=== PATIENT | female | born 1980 | race Native Hawaiian/Other Pacific Islander ===

== ENCOUNTER 2020-04-30 06:17 | Outpatient (REF) | payer MEDICAID, SELFPAY | END 2020-04-30 06:18 | disposition home or self-care (01) | LOC: HO.LAB 06:17 | PROVIDERS: PCP Nurse Practitioner Family; Visit Provider Internal Medicine | DX: Z20.828 Contact with and (suspected) exposure to other viral communicable diseases (principal) | CPT/HCPCS: 87635 ==

== ENCOUNTER → 2020-10-23 10:09 | Outpatient (BNVA) | payer MEDICAID, SELFPAY | PROVIDERS: Visit Provider Nurse Practitioner ==

== ENCOUNTER → 2020-12-30 13:33 | Outpatient (BNVA) | payer MEDICAID, SELFPAY | PROVIDERS: Referring Provider Nurse Practitioner Family; Visit Provider Physician Assistant | DX: E66.01 Morbid (severe) obesity due to excess calories (principal); K21.9 Gastro-esophageal reflux disease without esophagitis; K58.9 Irritable bowel syndrome, unspecified; K59.04 Chronic idiopathic constipation | CPT/HCPCS: 99202 ==

== ENCOUNTER → 2021-01-07 08:13 | Outpatient (BNVA) | payer MEDICAID, SELFPAY | PROVIDERS: PCP Nurse Practitioner Family; Visit Provider Dietitian, Registered | DX: E66.09 Other obesity due to excess calories (principal); Z68.41 Body mass index [BMI] 40.0-44.9, adult; Z90.49 Acquired absence of other specified parts of digestive tract | CPT/HCPCS: 97802 ==

== ENCOUNTER 2021-01-12 10:10 | Outpatient (REF) | payer MEDICAID, SELFPAY ==
--- NOTE | ~2021-01-12 | XR_ITS ---
EXAMINATION: XR CHEST CLINICAL INFORMATION: Severe obesity COMPARISON: August 16, 2016 TECHNIQUE: 2 views of the chest were obtained. FINDINGS: No significant abnormality is noted involving the heart, lungs, mediastinum, bony thorax or soft tissues. XR/XR chest 2V IMPRESSION: No acute disease.
--- NOTE | 2021-01-12 10:40 | ECG_ITS ---
Test Reason : MORBID OBESITY Blood Pressure : / mmHG Vent. Rate : 094 BPM Atrial Rate : 094 BPM P-R Int : 128 ms QRS Dur : 080 ms QT Int : 352 ms P-R-T Axes : 037 -27 017 degrees QTc Int : 440 ms Normal sinus rhythm Normal ECG No previous ECGs available Referred By: Vibha Egan Electronically Signed By:NANCY YING MD
[2021-01-12 11:23] LABS: MANUAL DIFF FLAG NO
[2021-01-12 11:32] LABS: Basophils Percent Auto 0.3 % (0-2); Eosinophils Absolute Auto 0.1 X10*3/uL (0.0-0.4); Eosinophils Percent Auto 1.2 % (0-4); Hematocrit 37.7 % (37-47); Hemoglobin 12.1 g/dl (12.0-16.0); Imm Gran Abs Auto 0.02 X10*3/uL (0.00-0.03); Imm Gran Pct Auto 0.3 % (0.0-0.4); Lymphocytes Absolute Auto 1.7 X10*3/uL (1.2-4.9); Lymphocytes Percent Auto 24.8 % (20-40); Mean Corpuscular HGB Conc 32.1 g/dl (31.0-35.0); Mean Corpuscular Hemoglobin 25.5 pg (27.0-33.0); Mean Corpuscular Volume 79.5 fL (80-98); Mean Platelet Volume 11.2 fL (9.4-12.3); Monocytes Absolute Auto 0.5 X10*3/uL (0.1-1.2); Monocytes Percent Auto 7.2 % (2-11); Neutrophils Absolute Auto 4.4 X10*3/uL (2.0-8.3); Neutrophils Percent Auto 66.2 % (45-73); Platelet Count 244 X10*3/uL (160-400); Red Blood Count 4.74 X10*6/uL (4.20-5.50); Red Cell Distribution Width 13.2 % (11.0-16.0); White Blood Count 6.7 X10*3/uL (4.8-10.8)
[2021-01-12 12:10] LABS: Alanine Aminotransferase 14 U/L (0-31); Albumin Level 4.5 g/dL (3.5-5.0); Alkaline Phosphatase 63 U/L (39-117); Anion Gap 12 (12-20); Aspartate Amino Transferase 17 U/L (5-31); Bilirubin Total 0.4 mg/dL (0.0-1.0); Blood Urea Nitrogen 16 mg/dL (9-16); C Reactive Protein 0.84 mg/dL (< or = 0.50); Calcium 9.4 mg/dL (8.4-10.2); Carbon Dioxide 25 mmol/L (22-29); Chloride 105 mmol/L (96-108); Cholesterol 168 mg/dL; Estimated Average Glucose 108 mg/dL; Estimated Glomerular Filt Rate > 60; Ferritin 29 ng/mL (10-122); Glucose Random 109 mg/dL (60-115); HDL Cholesterol 85 mg/dL; Hemoglobin A1c % 5.4 %; Iron 67 mcg/dL (30-160); LDL Cholesterol Calculated 70 mg/dl; Percent Iron Saturation 19 % (15-50); Potassium 4.5 mmol/L (3.3-5.1); Sodium 137 mmol/L (135-145); TSH reflex Free T4 0.73 uIU/mL (0.32-4.0); Total Iron Binding Capacity 350 mcg/dL (228-428); Total Protein 7.3 g/dL (6.5-8.0); Triglycerides 66 mg/dL; Unsaturated Iron Binding 283 ug/dL; Vitamin D 25-OH Total 20.5 ng/mL (>30)
[2021-01-12 12:20] LABS: Folate 5.9 ng/mL (> or = 4.0); Vitamin B12 392 pg/mL (200-900)
[2021-01-13 13:16] LABS: Calcium (PTHI) 9.6 mg/dL (8.6-10.2); PTHI 40 pg/mL (14-64)
[2021-01-13 21:26] LABS: Insulin Level Total 12.6 uIU/mL
[2021-01-14 16:56] LABS: Zinc 62 mcg/dL (60-130)
[2021-01-15 21:47] LABS: Vitamin A 56 mcg/dL (38-98)
[2021-01-16 12:46] LABS: Vitamin B1 10 nmol/L (8-30)
== END 2021-01-12 10:11 | disposition home or self-care (01) ==
LOC: HO.XRAY 10:10
PROVIDERS: PCP Nurse Practitioner Family; Visit Provider Physician Assistant
DX: E66.01 Morbid (severe) obesity due to excess calories (principal); K21.9 Gastro-esophageal reflux disease without esophagitis
CPT/HCPCS: 36415; 71046; 80053; 80061; 82306; 82607; 82728; 82746; 83036; 83525; 83540; 83970; 84425; 84443; 84590; 84630; 85025; 86140; 93005

== ENCOUNTER → 2021-01-14 14:46 | Outpatient (BNVA) | payer MEDICAID, SELFPAY | PROVIDERS: PCP Nurse Practitioner Family; Visit Provider Physician Assistant | DX: E66.01 Morbid (severe) obesity due to excess calories (principal); F41.9 Anxiety disorder, unspecified; E55.9 Vitamin D deficiency, unspecified; Z68.41 Body mass index [BMI] 40.0-44.9, adult | CPT/HCPCS: 99212 ==

== ENCOUNTER → 2021-01-27 13:57 | Outpatient (BNVA) | payer MEDICAID, SELFPAY | PROVIDERS: PCP Nurse Practitioner Family; Referring Provider Nurse Practitioner Family; Visit Provider Surgery | DX: E66.01 Morbid (severe) obesity due to excess calories (principal); Z68.41 Body mass index [BMI] 40.0-44.9, adult | CPT/HCPCS: 99212 ==

== ENCOUNTER → 2021-02-02 08:10 | Outpatient (BNVA) | payer MEDICAID, SELFPAY | PROVIDERS: PCP Nurse Practitioner Family; Visit Provider Dietitian, Registered | DX: E66.01 Morbid (severe) obesity due to excess calories (principal) | CPT/HCPCS: 97803 ==

== ENCOUNTER 2021-02-05 11:06 | Outpatient (REF) | payer MEDICAID, SELFPAY ==
[2021-02-06 12:22] LABS: H Pylori Breath Test NOT DETECTED (NOT DETECTED)
== END 2021-02-05 11:07 | disposition home or self-care (01) ==
LOC: HO.LNP 11:06
PROVIDERS: Physician Assistant; PCP Nurse Practitioner Family; Referring Provider Nurse Practitioner Family; Visit Provider Physician Assistant
DX: E66.01 Morbid (severe) obesity due to excess calories (principal); K21.9 Gastro-esophageal reflux disease without esophagitis
CPT/HCPCS: 83013; 99211

== ENCOUNTER → 2021-02-17 13:00 | Outpatient (BNVA) | payer MEDICAID, SELFPAY | PROVIDERS: PCP Nurse Practitioner Family; Visit Provider Surgery | DX: E66.9 Obesity, unspecified (principal); Z68.39 Body mass index [BMI] 39.0-39.9, adult | CPT/HCPCS: 99212 ==

== ENCOUNTER → 2021-02-23 13:42 | Outpatient (BNVA) | payer MEDICAID, SELFPAY | PROVIDERS: Visit Provider Nurse Practitioner ==

== ENCOUNTER → 2021-02-26 08:16 | Outpatient (BNVA) | payer MEDICAID, SELFPAY | PROVIDERS: PCP Nurse Practitioner Family; Referring Provider Nurse Practitioner Family; Visit Provider Dietitian, Registered | DX: E66.9 Obesity, unspecified (principal); Z68.39 Body mass index [BMI] 39.0-39.9, adult | CPT/HCPCS: 97803 ==

== ENCOUNTER 2021-03-03 12:19 | Outpatient (REF) | payer MEDICAID, SELFPAY ==
--- NOTE | ~2021-03-03 | XR_ITS ---
EXAMINATION: XR ANKLE, RIGHT XR FOOT, RIGHT CLINICAL INFORMATION: Pain. COMPARISON: None TECHNIQUE: AP, lateral, and mortise views of the right ankle. AP, lateral, and oblique views of the right foot. FINDINGS: Bony alignment and mineralization are normal. No fracture. Alignment is anatomic. The ankle mortise is intact. Joint spaces are maintained. No joint effusion. Boehler's angle is normal. There are moderately large posterior and plantar calcaneal spurs. No soft tissue gas or foreign body is seen. XR/XR ankle RT 2V IMPRESSION: 1. No fracture, dislocation or right ankle joint effusion is seen. 2. There are moderately large posterior and plantar calcaneal spurs.
--- NOTE | ~2021-03-03 | XR_ITS ---
EXAMINATION: XR KNEE, RIGHT CLINICAL INFORMATION: Pain. COMPARISON: None TECHNIQUE: AP, lateral, tunnel, and sunrise views of the right knee. FINDINGS: Bones and soft tissues are normal. No fracture or joint effusion. Alignment is anatomic. Joint spaces are well maintained. There is a small enthesophyte arising from the upper pole of the patella at the quadriceps tendon insertion. No abnormal soft tissue calcification. XR/XR knee LT 4V IMPRESSION: Normal right knee. EXAMINATION: XR KNEE, LEFT CLINICAL INFORMATION: Pain. COMPARISON: None TECHNIQUE: AP, lateral, tunnel, and sunrise views of the left knee. FINDINGS: Bones and soft tissues are normal. No fracture or dislocation. There is a very small joint effusion. Alignment is anatomic. Joint spaces are well maintained. There is minimal peripheral osteophyte formation of the patellofemoral compartment. No abnormal soft tissue calcification. IMPRESSION: 1. No fracture or dislocation is seen. 2. There is a very small left knee joint effusion. 3. There is minimal osteoarthritic change of the left patellofemoral compartment.
--- NOTE | ~2021-03-03 | XR_ITS ---
EXAMINATION: XR KNEE, RIGHT CLINICAL INFORMATION: Pain. COMPARISON: None TECHNIQUE: AP, lateral, tunnel, and sunrise views of the right knee. FINDINGS: Bones and soft tissues are normal. No fracture or joint effusion. Alignment is anatomic. Joint spaces are well maintained. There is a small enthesophyte arising from the upper pole of the patella at the quadriceps tendon insertion. No abnormal soft tissue calcification. XR/XR knee RT 4V IMPRESSION: Normal right knee. EXAMINATION: XR KNEE, LEFT CLINICAL INFORMATION: Pain. COMPARISON: None TECHNIQUE: AP, lateral, tunnel, and sunrise views of the left knee. FINDINGS: Bones and soft tissues are normal. No fracture or dislocation. There is a very small joint effusion. Alignment is anatomic. Joint spaces are well maintained. There is minimal peripheral osteophyte formation of the patellofemoral compartment. No abnormal soft tissue calcification. IMPRESSION: 1. No fracture or dislocation is seen. 2. There is a very small left knee joint effusion. 3. There is minimal osteoarthritic change of the left patellofemoral compartment.
--- NOTE | ~2021-03-03 | XR_ITS ---
EXAMINATION: XR ANKLE, RIGHT XR FOOT, RIGHT CLINICAL INFORMATION: Pain. COMPARISON: None TECHNIQUE: AP, lateral, and mortise views of the right ankle. AP, lateral, and oblique views of the right foot. FINDINGS: Bony alignment and mineralization are normal. No fracture. Alignment is anatomic. The ankle mortise is intact. Joint spaces are maintained. No joint effusion. Boehler's angle is normal. There are moderately large posterior and plantar calcaneal spurs. No soft tissue gas or foreign body is seen. XR/XR foot RT min 3V IMPRESSION: 1. No fracture, dislocation or right ankle joint effusion is seen. 2. There are moderately large posterior and plantar calcaneal spurs.
== END 2021-03-03 12:20 | disposition home or self-care (01) ==
LOC: HO.XRAY 12:19
PROVIDERS: PCP Nurse Practitioner Family; Visit Provider Nurse Practitioner Family
DX: M25.561 Pain in right knee (principal); M25.562 Pain in left knee; M79.671 Pain in right foot
CPT/HCPCS: 73564; 73600; 73630

== ENCOUNTER → 2021-03-26 13:17 | Outpatient (BNVA) | payer MEDICAID, SELFPAY | PROVIDERS: PCP Nurse Practitioner Family; Referring Provider Nurse Practitioner Family; Visit Provider Surgery | DX: E66.9 Obesity, unspecified (principal); Z68.38 Body mass index [BMI] 38.0-38.9, adult | CPT/HCPCS: 99212 ==

== ENCOUNTER 2021-04-03 07:21 | Outpatient (REF) | payer MEDICAID, SELFPAY ==
--- NOTE | ~2021-04-03 | XR_ITS ---
EXAMINATION: XR KNEE, BILATERAL CLINICAL INFORMATION: Right knee pain. COMPARISON: Right and left knee radiographs dated 03/03/2021 TECHNIQUE: AP bilateral standing view of the knees was obtained. FINDINGS: Tiny medial and lateral compartment marginal osteophytes within the right and left knee. No significant joint space narrowing. No osseous erosion. No fracture or dislocation. No abnormal soft tissue calcification. XR/XR knee standing BI IMPRESSION: Mild medial and lateral compartment osteoarthritis within the right and left knee, unchanged.
== END 2021-04-03 07:22 | disposition home or self-care (01) ==
LOC: HO.HOSX 07:21
PROVIDERS: Visit Provider Physician Assistant
DX: M22.2X1 Patellofemoral disorders, right knee (principal); M22.2X2 Patellofemoral disorders, left knee
CPT/HCPCS: 73565; 99202

== ENCOUNTER → 2021-04-20 14:48 | Outpatient (BNVA) | payer MEDICAID, SELFPAY | PROVIDERS: PCP Nurse Practitioner Family; Referring Provider Nurse Practitioner Family; Visit Provider Surgery | DX: E66.9 Obesity, unspecified (principal); Z68.38 Body mass index [BMI] 38.0-38.9, adult | CPT/HCPCS: 99212 ==

== ENCOUNTER 2021-05-05 11:25 | Outpatient (REF) | payer MEDICAID, SELFPAY ==
[2021-05-05 13:23] LABS: Vitamin D 25-OH Total 47.9 ng/mL (>30)
== END 2021-05-05 11:26 | disposition home or self-care (01) ==
LOC: HO.LAB 11:25
PROVIDERS: Visit Provider Surgery
DX: Z01.818 Encounter for other preprocedural examination (principal); E55.9 Vitamin D deficiency, unspecified
CPT/HCPCS: 36415; 82306

== ENCOUNTER → 2021-05-21 09:35 | Outpatient (BNVA) | payer MEDICAID, SELFPAY | PROVIDERS: Visit Provider Physician Assistant Surgical | DX: E66.9 Obesity, unspecified (principal); Z68.37 Body mass index [BMI] 37.0-37.9, adult | CPT/HCPCS: 99212 ==

== ENCOUNTER 2021-06-03 15:00 | Outpatient (RCR) | payer MEDICAID, SELFPAY ==
--- NOTE | 2021-05-22 15:50 | MHC.PT.EP ---
[facility] [place] Office [place] Office [place] Office [address]lon [address] [phone] F: [phone] F: [phone] F: [phone] F: [phone] Physical Therapy Plan of Care Date of Evaluation: Date of Surgery: n/a Diagnosis: patellofemoral disorders, R knee disorder Assessment: Patient is a 41 year old female presenting to PT with complaints of pain in his R knee. Pt reports onset of pain began 3-4 months ago due to insidious onset. She presents today with impairments in pain, hip strength, balance, and hs/quad muscle length. 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 Clinical presentation today is most consistent with signs and sx associated with possible patellofemoral pain syndrome and pt will benefit from skilled PT to address the following problems and impairments noted upon evaluation: pain, hip strength, balance, and hs/quad muscle length. These problems limit the patient with the following functional activities: ambulation, stair negotiation, and occasionally sleep. The prescribed treatment plan of care is medically necessary. Co-morbidities of none were identified and taken into considerations of plan of care. Pt was educated on HEP, role of PT, prognosis, POC, anatomy of knee. Frequency and Duration: The patient will be seen 2x week x 4 weeks Short Term Goals: Pt will demonstrate quad muscle length WNL in 2 weeks as evidence by negative prone quad test. Pt will demonstrate hs muscle length WNL in 2 weeks. Pt will demonstrate improved hip strength by 1/3 MMT in 2 weeks for improved lumbopelvic stability. Pt will demonstrate ability to SLS x 30 sec with min sway in 2 weeks for improved proprioception. Group Home Goals: Pt will demonstrate ability to negotiate stairs with min to no pain in 4 weeks to allow return to PLOF. Pt will demonstrate ability to ambulate x 20 min with min to no pain in 4 weeks to improve access to the community. Pt will demonstrate independence with maintenance HEP in 4 weeks for bed bug exterminator management of sx. Treatment Plan: Modalities to reduce pain, spasms and effusion. Manual therapy to restore motion and function. Therapeutic exercise to improve strength and flexibility. Neuromuscular re-education for posture and balance. Therapeutic activities to return to functional activities of daily living. Electronically signed by: Tamiko Clay, PT, DPT, ATC Please sign and return to therapist. Thank you for your referral.
--- NOTE | 2021-06-16 15:40 | MHC.PT.DC ---
[facility] [place] Office [place] Office [place] Office [address] [phone] F: [phone] F: [phone] F: [phone] F: [phone] Physical Therapy Discharge Report Diagnosis: patellofemoral disorders, R knee disorder Date of Surgery: n/a Date of Evaluation: 05/22/21 Date of Discharge: 06/16/21 Treatments to Date: 3 Cancellations to Date: 1 No Shows to Date: 2 Discharge Status: Visit Non-compliance Discharge Summary: Pt has failed to comply with [facility] attendance policy and no showed her last 2 scheduled appts. Pt current status unknown at this time. Electronically signed by: Tamiko Clay, PT, DPT, ATC Please sign and return to therapist. Thank you for your referral.
== END 2021-06-16 15:41 | disposition home or self-care (01) ==
LOC: HO.PT 15:00
PROVIDERS: PCP Nurse Practitioner Family; Visit Provider Physician Assistant
DX: M22.2X1 Patellofemoral disorders, right knee (principal); M22.2X2 Patellofemoral disorders, left knee
CPT/HCPCS: 97110; 97161

== ENCOUNTER → 2021-06-25 08:53 | Outpatient (BNVA) | payer MEDICAID, SELFPAY | PROVIDERS: PCP Nurse Practitioner; Referring Provider Nurse Practitioner; Visit Provider Physician Assistant Surgical | DX: E66.9 Obesity, unspecified (principal); Z68.36 Body mass index [BMI] 36.0-36.9, adult | CPT/HCPCS: 99212 ==

== ENCOUNTER 2021-07-02 09:22 | Outpatient (REF) | payer MEDICAID, SELFPAY ==
--- NOTE | ~2021-07-02 | US_ITS ---
EXAMINATION: US COMPLETE ABDOMEN WITH LIVER ELASTOGRAPHY CLINICAL INFORMATION: Obesity COMPARISON: Previous exam July 2016 TECHNIQUE: Real-time imaging of the abdominal viscera. Noninvasive ultrasound liver fibrosis assessment is performed using Claudio ElastPQ point quantification shear wave elastography (pSWE) with a C5-2 MHz transducer. Multiple elastography samples are obtained. FINDINGS: PANCREAS: Not well visualized due to bowel gas ABDOMINAL AORTA: The proximal, middle, and distal aortic segments are normal in caliber. INFERIOR VENA CAVA: Visualized portions are normal. LIVER: Liver echotexture is increased. The liver is normal in size and contour.. No focal lesion or intrahepatic biliary duct dilatation. The right lobe measures 13 cm in length. The left lobe measures 10 cm in length. Portal flow is normal/hepatopedal Shear wave liver elastography median stiffness is 1.5 m/s (reference: normal median stiffness is 1.3 m/s or less). IQR/median stiffness to assess sampling precision is 0.19 (reference: good quality data set is IQR/median stiffness of 0.15 or less). GALLBLADDER: Surgically removed COMMON BILE DUCT: Normal in caliber measuring 0.5 cm in diameter. RIGHT KIDNEY: Normal. No hydronephrosis. No renal calculi or focal parenchymal lesions. The kidney measures 11 cm in maximum dimension. LEFT KIDNEY: Normal. No hydronephrosis. No renal calculi or focal parenchymal lesions. The kidney measures 11 cm in maximum dimension. SPLEEN: Normal. The spleen measures 11.7 cm in maximum dimension. FREE FLUID: None. US/US abdomen comp w elastography IMPRESSION: 1. Impression: Echogenic liver. Limited visualization of the pancreas. Cholecystectomy. 2. Liver elastography: Slightly limited due to sampling error. In the absence of other known clinical signs, rules out compensated advanced chronic liver disease. REFERENCE: Society of Radiologists in Ultrasound Liver Stiffness Thresholds (2020): LIVER STIFFNESS THRESHOLDS: *Liver Stiffness equal or less than 1.3 m/s: High probability of being normal. *Liver Stiffness less than 1.7 m/s: In the absence of other known clinical signs, rules out compensated advanced chronic liver disease. *Liver Stiffness 1.7-2.1 m/s: Suggestive of compensated advanced chronic liver disease but need further test for confirmation. *Liver Stiffness over 2.1 m/s: Rules in compensated advanced chronic liver disease. *Liver Stiffness over 2.4 m/s: Suggestive of clinically significant portal hypertension. QUALITY OF DATA SET: *IQR/Median value equal or less than 0.15 implies a quality data set. *IQR/Median value over 0.15 implies a poor quality data set. SIGNIFICANT CHANGE FROM PRIOR EXAM: Significant change if liver stiffness measurement is 10% or greater from prior exam. OTHER CONSIDERATIONS: The stage of liver fibrosis may be overestimated in the setting of acute hepatitis, liver inflammation, elevated liver function tests, hepatic vascular congestion, obstructive cholestasis, non-fasting state, and infiltrative diseases such as amyloidosis and lymphoma. In some patients with NAFLD, the liver stiffness thresholds for compensated advanced chronic liver disease may be lower. In causes other than viral hepatitis and NAFLD, liver stiffness thresholds are not well established.
--- NOTE | ~2021-07-02 | FL_ITS ---
EXAMINATION: XR FLUOROSCOPY UPPER GI WITH AIR CLINICAL INFORMATION: Obesity. COMPARISON: None. TECHNIQUE: Routine upper GI exam was performed in upright and lying position. FINDINGS: Following intravenous administration of thick barium and effervescent granules, there is normal progression of bolus from the oral cavity through the pharynx and esophagus and into the stomach without any evidence of obstruction, narrowing or stricture. On placing patient supine and prone lying, the course, caliber and peristalsis of the stomach and the duodenum are normal. The mucosal pattern of the stomach and the duodenum is normal. There is a large gastroesophageal reflux in right decubitus view. No evidence of hiatal hernia. There is evidence of previous cholecystectomy. FLUOROSCOPY TIME: 1.4 minutes. DOSE AREA PRODUCT: 29.094 uGy-m2 (microgray-meter squared). FL/FL upper GI w air IMPRESSION: Large gastroesophageal reflux without hiatal hernia.
== END 2021-07-02 09:23 | disposition home or self-care (01) ==
LOC: HO.US 09:22
PROVIDERS: Visit Provider Physician Assistant Surgical
DX: E66.9 Obesity, unspecified (principal)
CPT/HCPCS: 74246; 76705; 76981

== ENCOUNTER 2021-07-09 08:45 | Outpatient (REF) | payer MEDICAID, SELFPAY ==
[2021-07-15 14:46] LABS: CT PCR NOT DETECTED (Not Detect.); NG PCR NOT DETECTED (Not Detect.)
[2021-07-21 18:46] LABS: HPV mRNA E6/E7 rflx Not Detected (Not Detected)
== END 2021-07-09 08:46 | disposition home or self-care (01) ==
LOC: HO.LAB 08:45
PROVIDERS: Visit Provider Advanced Practice Midwife
DX: Z01.419 Encounter for gynecological examination (general) (routine) without abnormal findings (principal); E66.9 Obesity, unspecified; E55.9 Vitamin D deficiency, unspecified; F33.9 Major depressive disorder, recurrent, unspecified; F41.9 Anxiety disorder, unspecified; F43.10 Post-traumatic stress disorder, unspecified; Z11.3 Encounter for screening for infections with a predominantly sexual mode of transmission; Z11.8 Encounter for screening for other infectious and parasitic diseases; Z11.51 Encounter for screening for human papillomavirus (HPV); Z90.49 Acquired absence of other specified parts of digestive tract; Z79.899 Other long term (current) drug therapy
CPT/HCPCS: 87491; 87591; 87624; 88142

== ENCOUNTER → 2021-08-12 12:15 | Outpatient (BNVA) | payer MEDICAID, SELFPAY | PROVIDERS: Visit Provider Surgery | DX: E66.9 Obesity, unspecified (principal); Z68.37 Body mass index [BMI] 37.0-37.9, adult | CPT/HCPCS: 99212 ==

== ENCOUNTER → 2021-08-28 12:59 | Outpatient (BNVA) | payer MEDICAID, SELFPAY | PROVIDERS: Visit Provider Nurse Practitioner | DX: K21.9 Gastro-esophageal reflux disease without esophagitis (principal); K59.04 Chronic idiopathic constipation | CPT/HCPCS: 99212 ==

== ENCOUNTER → 2021-09-04 08:57 | Outpatient (BNVA) | payer MEDICAID, SELFPAY | PROVIDERS: Visit Provider Surgery ==

== ENCOUNTER → 2021-09-09 10:30 | Outpatient (BNVA) | payer MEDICAID, SELFPAY | PROVIDERS: Visit Provider Surgery | DX: E66.9 Obesity, unspecified (principal); K21.9 Gastro-esophageal reflux disease without esophagitis; Z68.37 Body mass index [BMI] 37.0-37.9, adult | CPT/HCPCS: 99212 ==

== ENCOUNTER 2021-09-23 08:24 | Outpatient (REF) | payer MEDICAID, SELFPAY | END 2021-09-23 08:25 | disposition home or self-care (01) | LOC: HO.LAB 08:24 | PROVIDERS: Visit Provider Surgery | DX: Z13.89 Encounter for screening for other disorder (principal) ==

== ENCOUNTER 2021-09-30 08:00 | Inpatient (IN) | payer MEDICAID, SELFPAY ==
[2021-09-23 08:44] LABS: MANUAL DIFF FLAG NO
[2021-09-23 09:02] LABS: Basophils Percent Auto 0.3 % (0-2); Eosinophils Absolute Auto 0.1 X10*3/uL (0.0-0.4); Hemoglobin 12.5 g/dl (12.0-16.0); Imm Gran Abs Auto 0.02 X10*3/uL (0.00-0.03); Imm Gran Pct Auto 0.3 % (0.0-0.4); Lymphocytes Absolute Auto 1.8 X10*3/uL (1.2-4.9); Lymphocytes Percent Auto 26.2 % (20-40); Mean Corpuscular HGB Conc 32.9 g/dl (31.0-35.0); Mean Corpuscular Hemoglobin 26.3 pg (27.0-33.0); Mean Platelet Volume 10.3 fL (9.4-12.3); Monocytes Absolute Auto 0.5 X10*3/uL (0.1-1.2); Monocytes Percent Auto 7.2 % (2-11); Neutrophils Absolute Auto 4.6 x10*3/uL (2.0-8.3); Platelet Count 268 X10*3/uL (160-400); Red Blood Count 4.75 X10*6/uL (4.20-5.50); Red Cell Distribution Width 12.8 % (11.0-16.0)
[2021-09-23 09:09] LABS: INTERNATIONAL NORM RATIO 1.1 (0.9-1.1); Prothrombin Time 12.3 SEC (9.9-13.0)
[2021-09-23 09:11] LABS: Estimated Average Glucose 105 mg/dL; Hemoglobin A1c % 5.3 %
[2021-09-23 09:12] LABS: Partial Thromboplastin Time 35.8 SEC (24.1-38.0)
[2021-09-23 09:31] LABS: Alanine Aminotransferase 15 U/L (0-31); Albumin Level 4.3 g/dL (3.5-5.0); Alkaline Phosphatase 63 U/L (39-117); Anion Gap 14 (12-20); Aspartate Amino Transferase 14 U/L (5-31); Bilirubin Total 0.6 mg/dL (0.0-1.0); Blood Urea Nitrogen 14 mg/dL (9-16); C Reactive Protein 0.63 mg/dL (< or = 0.50); Calcium 9.9 mg/dL (8.4-10.2); Carbon Dioxide 26 mmol/L (22-29); Chloride 104 mmol/L (96-108); Cholesterol 176 mg/dL; Estimated Glomerular Filt Rate > 60; Glucose Random 96 mg/dL (60-115); HDL Cholesterol 74 mg/dL; LDL Cholesterol Calculated 85 mg/dl; Potassium 4.2 mmol/L (3.3-5.1); Sodium 140 mmol/L (135-145); Total Protein 7.1 g/dL (6.5-8.0); Triglycerides 85 mg/dL
[2021-09-23 09:53] LABS: Insulin 11 uU/mL (2-29); TSH reflex Free T4 1.91 uIU/mL (0.32-4.0)
[2021-09-24 09:55] VITALS: BMI 36.9
--- NOTE | 2021-09-26 00:58 | MHC.SHP ---
Pre-Procedural Eval Section A Date of Service: 09/26/21 The patient is an INPATIENT: Yes The History & Physical has been completed within 30 days and I have reviewed it.: Yes Section B Chief Complaint: obesity Relevant Family History (Specify if Yes): No Relevant Social History: None Present Medications: None Medical History: No relevant PMH History of Previous Operations: No relevant previous surgery Allergies: Allergies Allergy/AdvReac Type Severity Reaction Status Date / Time No Known Allergies Allergy Verified 09/09/21 10:34 Review of Systems Sugical H&P ROS: Negative: Constitution, Cardiovascular, Respiratory, Neurological, Psychiatric, Hem-Onc, Allergic/Immunologic, Gastrointestinal, Genitourinary, Musculoskeletal, Integumentary, Endocrine and Eyes/Ears/Nose/Throat Exam Surgical H&P Exam: Normal: HEENT, Normal: Heart, Normal: Lungs, Normal: Extremities, Normal: Abdomen, Normal: Skin and Normal: Neurological Plan Diagnosis/Plan: Unchanged I have reviewed the history and physical and performed a pertinent physical examination on my patient. No changes have occurred unless specified.
--- NOTE | 2021-09-28 12:01 | P.CONAN_ITS ---
Documented by User: Tammie Cohen NP 09/28/21 12:02 HPI - Anesthesia Eval Consult details Narrative: 41yo F for Gastrectomy Sleeve,EGD,poss diaphragmatic hernia,poss ventral hernia,poss open, PMFSH Active Problems Active Problems: All Active Problems (Updated 09/24/21 @ 09:43 by Imelda Humphrey RN) Upper abdominal pain (Acute) Morbid obesity (Acute) Anxiety (Acute) BMI 40.0-44.9, adult (Acute) Obesity (Acute) BMI 39.0-39.9,adult (Acute) BMI 38.0-38.9,adult (Acute) Patellofemoral arthralgia of both knees (Acute) Obesity (BMI 30-39.9) (Acute) Well woman exam with routine gynecological exam (Acute) Cervical cancer screening (Acute) Potential exposure to STD (Acute) PTSD (post-traumatic stress disorder) (Acute) BMI 37.0-37.9, adult (Acute) Nausea (Acute) Preprocedural examination (Acute) Chronic idiopathic constipation (Acute) GERD (gastroesophageal reflux disease) (Acute) Vitamin D deficiency (Acute) Past Medical History Medical History (Updated 09/24/21 @ 09:43 by Imelda Humphrey RN) Anxiety with depression Bipolar 1 disorder Chronic idiopathic constipation COVID-19 vaccine series completed GERD (gastroesophageal reflux disease) IBS (irritable bowel syndrome) Vitamin D deficiency Family History Family History Mother No problems noted. Father No problems noted. Brother No problems noted. Sister No problems noted. Daughter No problems noted. Surgical History Surgical History (Updated 09/24/21 @ 09:43 by Imelda Humphrey RN) History of dilation and curettage History of esophagogastroduodenoscopy (EGD) Hx of section S/P laparoscopic cholecystectomy Social History Social History Household Members: Children Are you a primary laboratory animal care veterinarian to a significant other at home: No Do you presently have visiting nurse or other home services: No Alcohol intake: current Alcohol intake frequency: does not drink Patient Tobacco Use Status: Never used Tobacco Use of substances other than those prescribed or required for medical reasons: No Have you been hit, kicked, punched, or otherwise hurt by someone within the past year? 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 Allergies Allergy/AdvReac Type Severity Reaction Status Date / Time No Known Allergies Allergy Verified 09/09/21 10:34 Home Medications Medication Instructions Recorded Confirmed Last Taken Type bupropion HCl 300 mg 24 hr tablet, 300 mg PO QAM 10/23/20 09/24/21 09/30/21 07:15 History extended release (Wellbutrin XL) hydroxyzine HCl 25 mg tablet 25 mg PO BEDTIME 10/23/20 09/24/21 Unknown History lamotrigine 100 mg tablet 100 mg PO DAILY 10/23/20 09/24/21 09/30/21 07:15 History (Lamictal) fluoxetine 20 mg capsule 20 mg PO QAM 08/12/21 09/24/21 09/30/21 07:15 History Exam Exam Date and Time: September 28, 2021 1201 Height,Weight and Vital Signs: Height 5 ft 2 in Weight 91.626 kg Pertinent Lab Results Pertinent Lab Results: Laboratory Tests 09/23/21 09/23/21 09/23/21 08:40 08:40 08:40 WBC 7.0 RBC 4.75 Hgb 12.5 Hct 38.0 MCV 80.0 MCH 26.3 L MCHC 32.9 RDW 12.8 Plt Count 268 MPV 10.3 Immature Gran % (Auto) 0.3 Neut % (Auto) 65.0 Lymph % (Auto) 26.2 [place] % (Auto) 7.2 Eos % (Auto) 1.0 Baso % (Auto) 0.3 Lymph # (Auto) 1.8 [place] # (Auto) 0.5 Eos # (Auto) 0.1 Baso # (Auto) 0.0 Abs Immat Gran (auto) 0.02 Absolute Neuts (auto) 4.6 Absolute Nucleated RBC 0.000 Nucleated RBC % (auto) 0.0 PT 12.3 INR 1.1 APTT 35.8 Sodium 140 Potassium 4.2 Chloride 104 Carbon Dioxide 26 Anion Gap 14 BUN 14 Creatinine 0.78 Estim Creat Clear Calc TNP Estimated GFR > 60 Random Glucose 96 Estimat Average Glucose Hemoglobin A1c % Insulin Level 11 Calcium 9.9 Total Bilirubin 0.6 AST 14 ALT 15 Alkaline Phosphatase 63 C-Reactive Protein 0.63 H Total Protein 7.1 Albumin 4.3 Triglycerides 85 Cholesterol 176 LDL Cholesterol, Calc 85 HDL Cholesterol 74 TSH 1.91 Blood Type Antibody Screen 09/23/21 09/23/21 08:40 08:40 WBC RBC Hgb Hct MCV MCH MCHC RDW Plt Count MPV Immature Gran % (Auto) Neut % (Auto) Lymph % (Auto) [place] % (Auto) Eos % (Auto) Baso % (Auto) Lymph # (Auto) [place] # (Auto) Eos # (Auto) Baso # (Auto) Abs Immat Gran (auto) Absolute Neuts (auto) Absolute Nucleated RBC Nucleated RBC % (auto) PT INR APTT Sodium Potassium Chloride Carbon Dioxide Anion Gap BUN Creatinine Estim Creat Clear Calc Estimated GFR Random Glucose Estimat Average Glucose 105 Hemoglobin A1c % 5.3 Insulin Level Calcium Total Bilirubin AST ALT Alkaline Phosphatase C-Reactive Protein Total Protein Albumin Triglycerides Cholesterol LDL Cholesterol, Calc HDL Cholesterol TSH Blood Type A Positive Antibody Screen NEGATIVE Narrative Narrative: EKG 12/2020 Vent. Rate : 094 BPM ? ? Atrial Rate : 094 BPM ?? P-R Int : 128 ms? QRS Dur : 080 ms ? ? QT Int : 352 ms ? ? ? P-R-T Axes : 037 -27 017 degrees ?? QTc Int : 440 ms ? Normal sinus rhythm Normal ECG No previous ECGs available Assessment and Plan Assessment Anesthesia Assessment: Chart Reviewed Documented by User: Aliza Magana MD 09/30/21 09:51 PMFSH Past Medical History Medical History (Updated 09/24/21 @ 09:43 by Imelda Humphrey RN) Anxiety with depression Bipolar 1 disorder Chronic idiopathic constipation COVID-19 vaccine series completed GERD (gastroesophageal reflux disease) IBS (irritable bowel syndrome) Vitamin D deficiency Family History Family History Mother No problems noted. Father No problems noted. Brother No problems noted. Sister No problems noted. Daughter No problems noted. Family history of problems with anesthesia: No Surgical History Surgical History (Updated 09/24/21 @ 09:43 by Imelda Humphrey RN) History of dilation and curettage History of esophagogastroduodenoscopy (EGD) Hx of section S/P laparoscopic cholecystectomy History of Problems with Anesthesia: No Social History Social History Household Members: Children Are you a primary laboratory animal care veterinarian to a significant other at home: No Do you presently have visiting nurse or other home services: No Alcohol intake: current Alcohol intake frequency: does not drink Patient Tobacco Use Status: Never used Tobacco Use of substances other than those prescribed or required for medical reasons: No Have you been hit, kicked, punched, or otherwise hurt by someone within the past year? 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 Allergies Allergy/AdvReac Type Severity Reaction Status Date / Time No Known Allergies Allergy Verified 09/09/21 10:34 Home Medications Medication Instructions Recorded Confirmed Last Taken Type bupropion HCl 300 mg 24 hr tablet, 300 mg PO QAM 10/23/20 09/24/21 09/30/21 07:15 History extended release (Wellbutrin XL) hydroxyzine HCl 25 mg tablet 25 mg PO BEDTIME 10/23/20 09/24/21 Unknown History lamotrigine 100 mg tablet 100 mg PO DAILY 10/23/20 09/24/21 09/30/21 07:15 History (Lamictal) fluoxetine 20 mg capsule 20 mg PO QAM 08/12/21 09/24/21 09/30/21 07:15 History Exam Airway Mallampati Class: II TM Dist: >3cm Neck ROM: Full Heart: rrr Lungs: cta Assessment and Plan Final Anesthetic Review Family History of Problems with Anesthesia: No History of Problems with Anesthesia: No NPO: Yes ASA Class: II Final Preanesthetic Review: No Changes in Pt Med Stat, Meds/Allgs Chart Reviewed and Consent Obtained/Reviewed Patient Risk: Intermediate Procedure Risk: Intermediate Anesthetic Plan Anesthetic Plan: GA Disposition: Standard PACU
[2021-09-29 14:53] LABS: COVID-19 Test Negative (Negative); IDNOW Serial# 16C4AD1C
[2021-09-30] VITALS (12 sets, daily range): BP systolic 131–161; BP diastolic 64–101; PULSE 86–133; RESP 11–18; TEMP 36–36.8; O2SAT 94–99
[2021-09-30 08:29] LABS: Urine Pregnancy NEGATIVE (NEGATIVE)
[2021-09-30 08:30] LABS: UPreg QC Valid YES
[2021-09-30] MEDS: Lactated Ringers 1,000 ML 100 ML IVCONT ×2 (08:51→14:13)
[2021-09-30] MEDS: Lactated Ringers 1,000 ML 999 ML IV (08:51)
--- NOTE | 2021-09-30 13:28 | PM.DS ---
DS: Providers Provider Date of Service: 10/01/21 Date of admission: 09/30/21 08:00 Primary care physician: [facility] DS: Summary Hospital Course Hospital Course: ADMITTING DIAGNOSIS: morbid obesity, bipolar, ER=GERD, IBS, anxiety DISCHARGE DIAGNOSIS: same, s/p laparoscopic sleeve gastrectomy PAST SURGICAL HISTORY: section, cholecystectomy PROCEDURE: upper endoscopy, laparoscopic sleeve gastrectomy DISCHARGE SUMMARY: History of Present Illness: The patient is a 41 year-old woman with a BMI of 41.3 kg/m2 and associated co-morbidities as described above. The patient had extensive work-up,lost 23.6 lbs preoperatively and was electively scheduled for laparoscopic, possible open sleeve gastrectomy and gastropexy. Risks and complications of the surgery were discussed with the patient in advance, particularly the possibility of , pulmonary embolism, anastomotic leak, bleeding, bowel injury, GERD, cardiac, renal or pulmonary complications. The patient understood all the risks and was in agreement with the surgical plan. Hospital Course: The patient underwent an uneventful laparoscopic sleeve gastrectomy with gastropexy and repair of diaphragmatic hernia on the day of admission. Postoperatively, the patient was transferred to the surgical floor. The patient received IV Acetaminophen and IV dilaudid for pain control. Patient was started on bariatric phase 1 diet POD #0. On postoperative day one, the patient was feeling well without nausea, vomiting, fevers, or tachycardia. The patient had some mild incisional pain and the abdomen was soft. On the morning of postoperative day one, the patient was continued on 1 ounce of water or ice every half hour. During the day, the patient did fairly well, having some incisional pain, but able to ambulate adequately and to tolerate liquids well. Since the patient is doing well, we decided that the patient was ready to be discharged. The patient was given instructions to follow-up with me next week and to call my office for any fever over 101, persistent abdominal pain, nausea, vomiting, GERD, symptoms of DVT such as calf tenderness, or leg swelling, or pulmonary embolism such as chest pain or shortness of breath. The patient was also instructed to drink 40-60 ounces of liquids per day using the 1-ounce cups. The patient had been given prescriptions for Tylenol for pain, Zofran prn for nausea, and pantoprazole and carafate previously. The patient was encouraged to ambulate and use the incentive spirometer. The patient was allowed to shower, but no baths, and encouraged to stay active at home. All of these instructions were given to the patient personally. All questions were answered and the patient understood all instructions, the instructions were also given to the patient in print. Time Spent with Patient Time attestation: Total time spent providing and/or coordinating discharge services: Discharge coordination time: Less than 30 minutes Quality: Stroke Does the patient have a stroke diagnosis?: No Physical Exam Vital Signs: Vital Signs: Last Vital Signs Temp 97.6 F 09/30/21 08:25 Pulse 99 09/30/21 08:25 Resp 16 09/30/21 08:25 BP 143/64 H 09/30/21 08:25 Pulse Ox 96 09/30/21 08:25 BMI result Body Mass Index 36.9 DS: Data Data Completed and Pending Pending studies at discharge: Pending at discharge 09/30/21 12:36 Surgical [PTH] Routine Labs on day of discharge: Laboratory Results - last 24 hr 09/29/21 09/30/21 14:05 03:15 Urine Test NEGATIVE COVID-19 ([facility]) Negative COVID-19 Clin Com See Note Discharge Plan Discharge Anticipated Discharge Date/Time: 10/01/21 10:25 Patient Disposition: Home, Self-Care Discharge Diagnosis: s/p sleeve gastrectomy Referrals: [facility] [Primary Care Provider] - 1 Week Discharge Medications: Continued clonazepam 0.5 mg tablet 1 tab PO DAILY PRN (Reason: Anxiety) 0RF hydroxyzine HCl 25 mg tablet 25 mg PO BEDTIME 0RF bupropion HCl [Wellbutrin XL] 300 mg tablet extended release 24 hr 300 mg PO QAM 0RF lamotrigine [Lamictal] 100 mg tablet 100 mg PO DAILY 0RF pantoprazole 40 mg tablet,delayed release (DR/EC) 40 mg PO BID 30 Days Qty: 60 6RF sucralfate 100 mg/mL suspension 10 ml PO BID Qty: 400 2RF ondansetron HCl 4 mg tablet 4 mg PO Q12H Qty: 20 0RF fluoxetine 20 mg capsule 20 mg PO QAM 0RF Held dicyclomine 10 mg capsule 20 mg PO QID PRN (Reason: for cramps) Qty: 240 3RF Hold Instructions: Discuss restart with Dr Coy Discontinued cyanocobalamin (vitamin B-12) [Vitamin B-12] 500 mcg tablet 500 mcg PO DAILY Qty: 30 6RF sennosides [senna] 8.6 mg tablet 17.2 mg PO DAILY 30 Days Qty: 60 6RF pantoprazole 40 mg tablet,delayed release (DR/EC) 40 mg PO DAILY Qty: 30 2RF polyethylene glycol 3350 [Miralax] 17 gram powder in packet 17 g PO DAILY Qty: 14 0RF Rx Instructions: Mix each packet with 8oz of water and do 7 packets on 09/28/21 and another 7 packets on 09/29/21 Discharge Orders: Discharge Order (Routine); Ordered 10/01/21 Ordered By: Vibha Egan Diet: other Activity on Discharge: No heavy lifting Stand Alone Forms: Patient Portal Discharge page Care Plan Goals: weight loss Health Concerns: obesity Plan of Treatment: No tub baths, sex or returning to work until discussed at first post op appointment. No exercise, alcohol, tobacco or illegal drug use. Continue to use incentive spirometer hourly while awake. Walk in home for 5- 10 minutes every 2 hours during the first week. Continue phase 1 diet today and start phase 2 diet tomorrow morning. Follow all instructions in the bariatric handbook and call with any questions. 1. Please call your doctor or come back to the emergency room should any new symptoms arise. 2. You will receive a courtesy call from [facility] 24-48 hours after discharge. 3. Activity: abstain from alcohol, practice limited stair climbing, no bending, no driving, no exercise, no illicit substances, no lifting, no sex, no tub bath, no work. 4. Diet: continue as discussed with Dr. Coy. 5. Dressing Change/Wound Care: Do not change or remove surgical dressings unless they are wet or soiled. 6. Call your doctor if: - Your temperature exceeds 101.5 F - You experience excessive pain or swelling - You have an unexpected reaction to medication - You have excessive bleeding - You experience continued vomiting/nausea - Your incision begins to separate - Your incision shows signs of infection such as increased redness, swelling, excessive pain, heat, or drainage (light blood or clear fluid is normal) 7. General instructions: No lifting greater than 5 lbs for the next 4 weeks[address] driving within 24 hours of taking narcotic pain medications. If you do not move your bowels in the next 2 days, please take milk of magnesia over the counter. Please follow the post op diet and do not advance your diet until you are seen in the office in about 2 weeks. Please walk around your home every hour or two to prevent blood clots from forming in your legs. You do not need to wake from sleeping to walk. Please sleep in a bed or couch to prevent kinking at the hips and knees. Please take your incentive spirometer (your lung custom studio coordinator) home with you and use it for the next few days to prevent pneumonias. You may shower, no hot tubs, baths or swimming pools. Please call the office with any questions or concerns such as increasing abdominal pain, fever, chills, shortness of breath, chest pain, leg pain or swelling, or redness or drainage from your incisions. Do not hesitate to contact the office with any questions at . The patient's medical history has been reviewed and they are considered low risk for post op DVT and therefore DVT prophylaxis is not considered necessary. Travel after surgery was reviewed. The patient has not disclosed any travel plans during the first 30 days after surgery and they have been advised that within the first 30 days after surgery any bus, plane, train or car travel over 2 hours in duration is contraindicated due to the possibility of developing blood clots from immobility. Any travel, needs to include periods of ambulation of 10 minutes in duration every 2 hours. The patient was instructed to discuss any plans for travel during this period with their bariatric surgeon. Assessment: stable, post op sleeve gastrectomy
--- NOTE | 2021-09-30 13:39 | P.BOP_ITS ---
Brief Operative Note Date of Service: 09/30/21 Pre-op diagnosis: Severe obesity with comorbidities (see below) Post-op diagnosis: same Procedure: INITIAL PATIENT BMI ON PRESENTATION AT OUR OFFICE: 41.3 kg/m2 LAST BMI BEFORE SURGERY: 36.7 kg/m2 COMORBIDITIES: GERD, depression, bipolar, liver steatosis ?The patient presented to the Weight Management Program with significant obesity that was negatively impacting the patient's comorbidities as listed above.? The program is a phased program with a special focus on preoperative medical weight management to promote substantial weight loss and prepare the patients for the second phase of the program: bariatric surgery. The patient participated in an intensive weekly lifestyle ?intervention and exercise program during which the patient ?has lost between the initial office visit and the last preoperative visit 26.1 lbs, or 11.53% of initial actual body weight. It was deemed appropriate for the patient to now have bariatric surgery. In light of the current Covid-19 pandemic and the well documented strong association of obesity and increased risk of worse outcomes if infected with Covid-19 (REFERENCES: https://pubmed.ncbi.nlm.nih.gov/38824734/ ,? http s://pubmed.ncbi.nlm.nih.gov/43519288/ ), any delay in undergoing bariatric surgery may lead to the patient's worsening health condition and increased?risk of more severe Covid-19 disease if infected. In addition a recent?study from [facility] published in [facility] Surgery on 07/13/2021 ([email or web address]) found that, among patients with obesity, substantial weight loss achieved with surgery was associated with improved outcomes of COVID-19 infection. The findings suggest that obesity can be a modifiable risk factor for the severity of COVID-19 infection. In addition, the patient met the BMI-criteria for bariatric surgery based on the BMI on initial presentation. The patient should not be penalized for achieving such weight loss because ?it is not sustainable long-term without surgical intervention and it was achieved in preparation for bariatric surgery ?under my direction and based on my published research ([email or web address]).[email or web address] and? https://www.soard.org/article/[email or web address](44)23153-X/pdf ) ?that a 10% preoperative weight loss improves long-term weight loss after surgery and reduces perioperative complications.? Insurance carriers such as [facility] have endorsed my recommendations ?and have included in their policies criteria to include a 10% preoperative weight loss requirement. PROCEDURE: Esophago-gastroscopy, laparoscopic sleeve gastrectomy and laparoscopic gastropexy INDICATIONS: This is a 41 year-old female who was electively scheduled for laparoscopic, possibly open sleeve gastrectomy. The risks and complications of the procedure were discussed with the patient in advance, particularly the possibility of ; pulmonary embolism; staple line leak; bleeding; GERD; cardiac, pulmonary, or renal complications; as well as long-term problems such as insufficient weight loss, vitamin deficiency, strictures, or ulcers. The p atient understood all the risks, and was in agreement to proceed with surgery. DESCRIPTION OF PROCEDURE: After informed consent was obtained from the patient, the patient was given preoperative antibiotics, and was transferred to the operating room. After successful induction of general anesthesia, pneumatic compression devices were placed on both lower extremities. An upper endoscopy was performed next. The oropharynx and esophagus appeared to be within normal limits. There was no diaphragmatic hernia present, consistent with the findings of the preoperative upper GI. The stomach was entered. Then after all fluid and air were suctioned and the stomach was fully decompressed, the scope was withdrawn and secured in the mid esophagus. The patient was then prepped and draped in the usual sterile manner, and abdominal access was established at the right upper quadrant with the Yossi technique. A 12 mm blunt port was inserted, and the abdomen was insufflated with CO2 to a pressure of 15 mmHg. Under direct visualization, additional ports were placed, specifically two 5 mm Versi-step ports to the left upper quadrant, and a 5 mm Versi-Step port to the right upper quadrant. 1% lidocaine plain was used to infiltrate all port sites as well as all fascia defects. There were adhesions in the abdomen from previous involving the omentum and the anterior abdominal wall. Those were left intact as they were in the lower abdomen and did not interfere with our procedure. Following that, the patient was placed in a steep reverse Trendelenburg position. An additional 5 mm port was placed to the right flank for the Mediflex retractor that was used to retract the left lobe of the liver. The gastro-esophageal fat pad was opened with the ultrasonic device (Thunderbeat, Olympus) and the anterior esophagus and hiatus were exposed. The angle of His was opened with the ultrasonic device the fundus of the stomach from any diaphragmatic and splenic attachments. I then opened the gastrocolic ligament between the transverse colon and the greater curvature of the stomach with the ultrasonic device to enter the lesser sac and facilitate the ligation of the short gastric vessels. I started at a mid-point along the greater curvature and using the Thunderbeat, all short gastric vessels were divided all the way to the angle of His until the left jayesh was completely dissected at its entirety. I then divided the gastro-colic ligament distally to a distance of about 3-4 cm proximal to the pylorus. The stomach was then divided transversely with one Endo RAINE-45 purple, one RAINE- 45 orange and three RAINE-60 articulating orange loads using the AEON stapler and loads. Every effort was made that the gastric sleeve had a tubular shape and an even caliber throughout. Once the sleeve resection was completed, the staple line of the gastric sleeve was reinforced with Hemoclips. The resected stomach was retrieved without difficulty from the Yossi port. A gastropexy was then performed in order to prevent postoperative GERD and partial gastric volvulus. Several interrupted 2.0 Surgidac sutures were placed between the sleeve's staple line and the previously divided greater omentum and gastro-colic ligament using the Endo-Stitch device. ?An upper endoscopy was performed. There was no narrowing at the GE junction. The scope was easily advanced all the way to the pylorus which was clearly visualized. There was no narrowing anywhere and the sleeve's caliber was even throughout. The sleeve's staple line was inspected and there was no evidence of ischemia, bleeding or dehiscence. At that point the gastroscope was withdrawn from the patient?s mouth while we were decompressing the bowel and the stomach from any remaining air. I looked into the lesser sac to see how the sleeve was situating and it was situating well. There was no bleeding from the staple line, spleen, or short gastric vessels. The Mediflex retractor was removed, and the undersurface of the liver was inspected and there was no bleeding. The patient was placed in supine position. I closed the fascial defect of the 12 mm port site with a figure of eight #1 Polysorb suture. Then 100 cc 0.25 % Marcaine plain with 10 mg of Dexamethasone were used to infiltrate the fascial closure as well as all skin incisions. At this point, the abdomen was deflated, all ports were removed under direct visio n, and no bleeding was noted from any of the port sites. The skin incisions were irrigated with saline and were closed with 4-0 absorbable monofilament sutures. Steri-Strips and OpSites were used to cover all incisions. The patient was extubated and was transferred in stable condition to the recovery room for further care. I was present and performed all fowler parts of the procedure. Ms. Egan was the nurse first assist. There were no residents to assist with this case. Evangelista Coy MD, PhD, FACS Surgeon: Goran Coy MD Anesthesia: GETA, local and other (TAP block) Was an Hot End Operator used for this Procedure?: Yes Hot End Operator: Vibha Egan Estimated blood loss (mL): 10 IV fluids (mL): 3,000 Urine output (mL): 0 (No Christine to gravity) Pathology: other (Stomach) Condition: stable Disposition: PACU
[2021-09-30] MEDS: fentaNYL citrate/PF 100 MCG/2 ML VIAL 50 MCG IVPUSH (13:40)
--- NOTE | 2021-09-30 13:44 | PM.PNGS ---
Subjective Subjective Date of Service: 10/01/21 Interval history: Patient has mild incisional pain, but was able to ambulate and use the incentive spirometer. She is tolerating phase 1 bariatric diet Physical Exam Vital Signs: Vital Signs: Last Vital Signs Temp 97.4 F 09/30/21 13:25 Pulse 127 H 09/30/21 13:35 Resp 16 09/30/21 13:35 BP 144/90 H 09/30/21 13:35 Pulse Ox 98 09/30/21 13:35 BMI result Body Mass Index 36.9 GI: Inspection: Yes normal to inspection, Yes incision (clean, dry and intact) and Yes obesity Extrem: Right lower extremity: normal to inspection (no calf tenderness) Left lower extremity: normal to inspection (no calf tenderness) Objective Data Active Medications Fentanyl (Fentanyl Citrate/Pf 100 Mcg/2 Ml Vial) 50 mcg IVPUSH Q5M PRN; Protocol PRN Reason: Pain, Severe (Pain Scale 7-10) Lactated Ringer's (Lr) 1,000 mls @ 100 mls/hr IVCONT .Q10H ROBIN Last Admin: 09/30/21 08:51 Dose: 100 mls/hr Documented by: DEVIN Promethazine HCl 12.5 mg/ (Sodium Chloride) 50.5 mls @ 202 mls/hr IV ONCE PRN PRN Reason: Nausea and Vomiting Oxycodone HCl (Oxycodone Hcl Immed Release 5 Mg Tablet) 5 mg PO ONCE PRN PRN Reason: Pain, Severe (Pain Scale 7-10) Labs CBC & Chem 7: 10/01/21 05:31 10/01/21 05:31 Labs: Laboratory Results - last 24 hr 09/29/21 09/30/21 14:05 03:15 Urine Test NEGATIVE COVID-19 ([facility]) Negative COVID-19 Clin Com See Note Procedures Date of Service Date of Service: 10/01/21 Progress Note: A&P Assessment and plan (1) Obesity: (2) BMI 36.0-36.9,adult: Status: Acute (3) S/P laparoscopic sleeve gastrectomy: Status: Acute Assessment and Plan: s/p laparoscopic sleeve gastrectomy and gastropexy Doing well Check am labs. If OK, will discharge home? (4) GERD (gastroesophageal reflux disease): Status: Acute (5) PTSD (post-traumatic stress disorder): (6) Anxiety: Status: Acute (7) Steatosis, liver: Status: Acute (8) Depression: Status: Acute (9) Bipolar 1 disorder: Status: Acute Fall Risk Details Current Medications: Current Medications Fentanyl (Fentanyl Citrate/Pf 100 Mcg/2 Ml Vial) 50 mcg IVPUSH Q5M PRN; Protocol PRN Reason: Pain, Severe (Pain Scale 7-10) Lactated Ringer's (Lr) 1,000 mls @ 100 mls/hr IVCONT .Q10H ROBIN Last Admin: 09/30/21 08:51 Dose: 100 mls/hr Documented by: Promethazine HCl 12.5 mg/ (Sodium Chloride) 50.5 mls @ 202 mls/hr IV ONCE PRN PRN Reason: Nausea and Vomiting Oxycodone HCl (Oxycodone Hcl Immed Release 5 Mg Tablet) 5 mg PO ONCE PRN PRN Reason: Pain, Severe (Pain Scale 7-10) Time Spent With Patient Time: Total time spent is greater than 50% in coordination of care (as documented) at patient's floor/unit and/or counseling patient: Time with patient: less than 15 minutes Quality Stroke Does the patient have a stroke diagnosis?: No VTE Prior VTE?: No VTE Risk Level:: Surgical - moderate VTE Device Contraindication: N/A - Device Ordered VTE Drug Contraindication: Treatment Not Indicated
[2021-09-30] MEDS: Famotidine/PF 20 MG/2 ML VIAL IVPUSH ×2 (13:50→20:07)
[2021-09-30] MEDS: HYDROmorphone HCl 0.5 MG/0.5 ML SYRINGE IVPUSH (14:00)
[2021-09-30 14:06] LABS: Hemoglobin 11.7 g/dl (12.0-16.0)
[2021-09-30 14:56] LABS: Anion Gap 13 (12-20); Blood Urea Nitrogen 7 mg/dL (9-16); Calcium 8.9 mg/dL (8.4-10.2); Carbon Dioxide 22 mmol/L (22-29); Chloride 105 mmol/L (96-108); Creatinine Clr Calc Pharmacy 107.9; Estimated Glomerular Filt Rate > 60; Glucose Random 134 mg/dL (60-115); Potassium 4.3 mmol/L (3.3-5.1); Sodium 136 mmol/L (135-145)
[2021-09-30] MEDS: ceFAZolin Sodium/Dextrose,Iso 2 GM/50 ML PIGGYBACK IV (15:50)
[2021-09-30] MEDS: ondansetron HCL 4 MG/2 ML VIAL IVPUSH (20:07)
[2021-09-30] MEDS: 0.9 % Sodium Chloride Flush 3 ML SYRINGE IVFLUSH (20:07)
[2021-09-30] MEDS: hydrOXYzine HCL 25 MG TABLET PO (20:07)
[2021-10-01] MEDS: Lactated Ringers 1,000 ML 100 ML IVCONT (00:01)
[2021-10-01] MEDS: ondansetron HCL 4 MG/2 ML VIAL IVPUSH (03:37)
[2021-10-01 04:00] VITALS: BP 131/80; PULSE 90; RESP 16; TEMP 36.3; O2SAT 95
[2021-10-01 05:40] LABS: MANUAL DIFF FLAG NO
[2021-10-01 05:42] LABS: Hematocrit 31.8 % (37.0-47.0); Hemoglobin 10.5 g/dl (12.0-16.0); Imm Gran Abs Auto 0.02 X10*3/uL (0.00-0.03); Imm Gran Pct Auto 0.2 % (0.0-0.4); Lymphocytes Percent Auto 12.7 % (20-40); Mean Corpuscular Hemoglobin 26.5 pg (27.0-33.0); Mean Corpuscular Volume 80.3 fL (80.0-98.0); Monocytes Absolute Auto 0.7 X10*3/uL (0.1-1.2); Monocytes Percent Auto 8.6 % (2-11); Neutrophils Absolute Auto 6.3 x10*3/uL (2.0-8.3); Neutrophils Percent Auto 78.5 % (45-73); Platelet Count 228 X10*3/uL (160-400); Red Blood Count 3.96 X10*6/uL (4.20-5.50); Red Cell Distribution Width 12.8 % (11.0-16.0)
[2021-10-01 05:59] LABS: Anion Gap 12 (12-20); Blood Urea Nitrogen 6 mg/dL (9-16); Calcium 8.9 mg/dL (8.4-10.2); Carbon Dioxide 24 mmol/L (22-29); Chloride 105 mmol/L (96-108); Creatinine Clr Calc Pharmacy 119.3; Estimated Glomerular Filt Rate > 60; Glucose Random 98 mg/dL (60-115); Sodium 137 mmol/L (135-145)
[2021-10-01] MEDS: FLUoxetine HCl 20 MG CAPSULE PO (07:22)
[2021-10-01] MEDS: lamoTRIgine 100 MG TABLET PO (07:22)
[2021-10-01] MEDS: Famotidine/PF 20 MG/2 ML VIAL IVPUSH (07:22)
[2021-10-01] MEDS: buPROPion HCl XL 300 MG TAB.ER.24H PO (07:22)
[2021-10-01 07:36] VITALS: BP 137/78; PULSE 78; RESP 17; TEMP 36.3; O2SAT 96
--- NOTE | 2021-10-01 10:22 | MHC.CM.PN ---
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 D/C PLAN: HOME SELF-CARE W/OUPT FOLLOW-UP, PT'S RIDE AT BEDSIDE
--- NOTE | 2021-10-01 11:11 | HO.POSTANES ---
Post Anesthesia Evaluation Post Anesthesia Evaluation Vital Signs: Vital Signs Temp Pulse Resp BP Pulse Ox 10/01/21 07:36 97.4 F 78 17 137/78 96 10/01/21 04:00 97.3 F 90 16 131/80 95 09/30/21 23:42 98.0 F 104 H 16 131/67 95 Anesthesia: General Endotracheal-GETA Mental Status: Awake Pain Control: Satisfactory Nausea/Vomiting: None Hydration: Adequate Anesthesia-Related Issues: No Anes. Related Issues
== END 2021-10-01 10:13 | disposition home or self-care (01) | DRG 403 ==
LOC: HO.SSSA 13:28 → HO.S3 14:11
PROVIDERS: Nurse Practitioner; Physician Assistant; Physician Assistant Surgical; Admitting Provider Surgery; PCP Nurse Practitioner; Visit Provider Surgery
PROC: 0DB64Z3 Excision of Stomach, Percutaneous Endoscopic Approach, Vertical (ICD-10-PCS; CPT 43845; principal; 2021-09-30 10:10)
DX: E66.01 Morbid (severe) obesity due to excess calories (principal); K76.0 Fatty (change of) liver, not elsewhere classified; F31.9 Bipolar disorder, unspecified; F41.9 Anxiety disorder, unspecified; K21.9 Gastro-esophageal reflux disease without esophagitis; Z20.822 Contact with and (suspected) exposure to COVID-19; Z68.36 Body mass index [BMI] 36.0-36.9, adult; Z79.899 Other long term (current) drug therapy
CPT/HCPCS: 36415; 80048; 80053; 80061; 81025; 83036; 83525; 84443; 85014; 85018; 85025; 85610; 85730; 86140; 86850; 86900; 86901; 87635; 88307; 88342; 99024; A4649; J0131; J0690; J1100; J1170; J2250; J2405; J3010

== ENCOUNTER → 2021-10-06 12:50 | Outpatient (BNVA) | payer MEDICAID, SELFPAY | PROVIDERS: Visit Provider Surgery | DX: E66.9 Obesity, unspecified (principal); Z68.35 Body mass index [BMI] 35.0-35.9, adult; Z71.3 Dietary counseling and surveillance; Z98.84 Bariatric surgery status | CPT/HCPCS: 99212 ==

== ENCOUNTER → 2021-11-04 08:03 | Outpatient (BNVA) | payer MEDICAID, SELFPAY | PROVIDERS: Visit Provider Physician Assistant | DX: E66.9 Obesity, unspecified (principal); Z98.84 Bariatric surgery status; Z68.33 Body mass index [BMI] 33.0-33.9, adult | CPT/HCPCS: 99212 ==

== ENCOUNTER → 2021-12-07 08:23 | Outpatient (BNVA) | payer MEDICAID, SELFPAY | PROVIDERS: Referring Provider Surgery; Visit Provider Physician Assistant | DX: E66.9 Obesity, unspecified (principal); Z68.31 Body mass index [BMI] 31.0-31.9, adult; Z98.84 Bariatric surgery status | CPT/HCPCS: 99212 ==

== ENCOUNTER 2021-12-10 10:30 | Outpatient (REF) | payer MEDICAID, SELFPAY ==
--- NOTE | ~2021-12-10 | MM_ITS ---
EXAMINATION: MM SCREENING DIGITAL BREAST TOMOSYNTHESIS, BILATERAL CLINICAL INFORMATION: Screening. Asymptomatic. The lifetime risk of breast cancer based on the Tyrer-Cuzick Model is 9.9%. COMPARISON: Mammography: May 28, 2019 and studies dating back to March 29, 2017 TECHNIQUE: Digital breast tomosynthesis is performed in both the craniocaudal and mediolateral oblique views along with computer-aided detection (CAD). Synthesized 2D images are generated from the tomosynthesis. FINDINGS: The breasts are almost entirely fatty (ACR BI-RADS breast composition Category a). There are no new significant masses, abnormal calcifications, or other abnormalities. There are some stable left breast retroareolar calcifications present. MM/MM tomosynthesis screening BI IMPRESSION: There are no significant changes from prior study. ASSESSMENT: BI-RADS 2: Benign RECOMMENDATION: Routine annual mammography screening. This patient's information was entered into a reminder system with a target due date for their next mammogram.
== END 2021-12-10 10:31 | disposition home or self-care (01) ==
LOC: HO.MAMMO 10:30
PROVIDERS: Visit Provider Advanced Practice Midwife
DX: Z12.31 Encounter for screening mammogram for malignant neoplasm of breast (principal)
CPT/HCPCS: 77063; 77067

== ENCOUNTER → 2022-02-26 10:57 | Outpatient (BNVA) | payer MEDICAID, SELFPAY | PROVIDERS: PCP Registered Nurse; Visit Provider Nurse Practitioner | DX: R10.10 Upper abdominal pain, unspecified (principal); K21.9 Gastro-esophageal reflux disease without esophagitis; K59.04 Chronic idiopathic constipation | CPT/HCPCS: 99212 ==

== ENCOUNTER 2022-03-29 10:41 | Outpatient (REF) | payer MEDICAID, SELFPAY ==
[2022-03-29 11:04] LABS: MANUAL DIFF FLAG NO
[2022-03-29 11:35] LABS: Basophils Percent Auto 0.6 % (0-2); Eosinophils Absolute Auto 0.1 X10*3/uL (0.0-0.4); Eosinophils Percent Auto 1.3 % (0-4); Hemoglobin 12.2 g/dl (12.0-16.0); Imm Gran Abs Auto 0.01 X10*3/uL (0.00-0.03); Imm Gran Pct Auto 0.2 % (0.0-0.4); Lymphocytes Absolute Auto 1.4 X10*3/uL (1.2-4.9); Lymphocytes Percent Auto 26.5 % (20-40); Mean Corpuscular HGB Conc 33.9 g/dl (31.0-35.0); Mean Corpuscular Hemoglobin 28.1 pg (27.0-33.0); Mean Corpuscular Volume 82.9 fL (80.0-98.0); Mean Platelet Volume 10.5 fL (9.4-12.3); Monocytes Absolute Auto 0.3 X10*3/uL (0.1-1.2); Monocytes Percent Auto 5.7 % (2-11); Neutrophils Absolute Auto 3.6 x10*3/uL (2.0-8.3); Neutrophils Percent Auto 65.7 % (45-73); Platelet Count 230 X10*3/uL (160-400); Red Blood Count 4.34 X10*6/uL (4.20-5.50); Red Cell Distribution Width 12.8 % (11.0-16.0); White Blood Count 5.4 X10*3/uL (4.8-10.8)
[2022-03-29 11:43] LABS: Estimated Average Glucose 97 mg/dL
[2022-03-29 11:58] LABS: Alanine Aminotransferase 10 U/L (0-31); Albumin Level 4.2 g/dL (3.5-5.0); Alkaline Phosphatase 58 U/L (39-117); Anion Gap 13 (12-20); Aspartate Amino Transferase 15 U/L (5-31); Bilirubin Total 0.6 mg/dL (0.0-1.0); Blood Urea Nitrogen 16 mg/dL (9-16); Calcium 9.3 mg/dL (8.4-10.2); Carbon Dioxide 27 mmol/L (22-29); Chloride 107 mmol/L (96-108); Cholesterol 182 mg/dL; Estimated Glomerular Filt Rate > 60; Glucose Random 95 mg/dL (60-115); HDL Cholesterol 76 mg/dL; Iron 80 mcg/dL (30-160); LDL Cholesterol Calculated 95 mg/dl; Percent Iron Saturation 25 % (15-50); Potassium 4.5 mmol/L (3.3-5.1); Sodium 142 mmol/L (135-145); Total Iron Binding Capacity 318 mcg/dL (228-428); Total Protein 7.1 g/dL (6.5-8.0); Triglycerides 57 mg/dL; Unsaturated Iron Binding 238 ug/dL
[2022-03-29 12:21] LABS: Ferritin 66 ng/mL (10-250); Insulin 7 uU/mL (2-29); TSH reflex Free T4 0.73 uIU/mL (0.32-4.0); Vitamin D 25-OH Total 50.2 ng/mL (>30)
[2022-03-29 12:23] LABS: Folate 14.7 ng/mL (> or = 4.0); Vitamin B12 1194 pg/mL (200-900)
[2022-03-31 13:33] LABS: Calcium (PTHI) 9.5 mg/dL (8.6-10.2); PTHI 39 pg/mL (16-77)
[2022-04-01 06:22] LABS: Zinc 86 mcg/dL (60-130)
[2022-04-02 02:46] LABS: Vitamin A 41 mcg/dL (38-98)
[2022-04-03 09:37] LABS: Vitamin B1 25 nmol/L (8-30)
== END 2022-03-29 10:42 | disposition home or self-care (01) ==
LOC: HO.LAB 10:41
PROVIDERS: PCP Registered Nurse; Visit Provider Physician Assistant
DX: E66.3 Overweight (principal); K76.0 Fatty (change of) liver, not elsewhere classified; Z98.84 Bariatric surgery status
CPT/HCPCS: 36415; 80053; 80061; 82306; 82607; 82728; 82746; 83036; 83525; 83540; 83970; 84425; 84443; 84590; 84630; 85025; 86140

== ENCOUNTER → 2022-04-06 14:03 | Outpatient (BNVA) | payer MEDICAID, SELFPAY | PROVIDERS: PCP Registered Nurse; Referring Provider Physician Assistant; Visit Provider Physician Assistant Surgical | DX: E66.3 Overweight (principal); Z98.84 Bariatric surgery status; Z68.28 Body mass index [BMI] 28.0-28.9, adult | CPT/HCPCS: 99212 ==

== ENCOUNTER 2022-04-27 14:22 | Outpatient (REF) | payer MEDICAID, SELFPAY ==
--- NOTE | ~2022-04-27 | XR_ITS ---
EXAMINATION: XR SACRUM AND COCCYX CLINICAL INFORMATION: Sacrococcygeal disorder COMPARISON: None TECHNIQUE: 2 views of the sacrum and 2 views of the coccyx were obtained. FINDINGS: There is normal symmetry of SI joints and hip joints. No bony erosive changes. No fracture or bony abnormality involving the sacrum or coccyx.. Presacral and postcentral soft tissues are normal. XR/XR sacrum coccyx min 2V IMPRESSION: Unremarkable sacrum and coccyx exam.
== END 2022-04-27 14:23 | disposition home or self-care (01) ==
LOC: HO.XRAY 14:22
PROVIDERS: PCP Registered Nurse; Visit Provider Registered Nurse
DX: M53.3 Sacrococcygeal disorders, not elsewhere classified (principal)
CPT/HCPCS: 72220

== ENCOUNTER → 2022-05-11 09:15 | Outpatient (BNVA) | payer MEDICAID, SELFPAY | PROVIDERS: PCP Registered Nurse; Referring Provider Physician Assistant Surgical; Visit Provider Dietitian, Registered | DX: E66.3 Overweight (principal); Z68.28 Body mass index [BMI] 28.0-28.9, adult; Z71.3 Dietary counseling and surveillance | CPT/HCPCS: 97803 ==

== ENCOUNTER → 2022-06-23 09:27 | Outpatient (BNVA) | payer MEDICAID, SELFPAY | PROVIDERS: PCP Registered Nurse; Visit Provider Physician Assistant Surgical | DX: E66.3 Overweight (principal); Z68.27 Body mass index [BMI] 27.0-27.9, adult; K21.9 Gastro-esophageal reflux disease without esophagitis; Z98.84 Bariatric surgery status | CPT/HCPCS: 99212 ==

== ENCOUNTER → 2022-07-26 09:28 | Outpatient (BNVA) | payer MEDICAID, SELFPAY | PROVIDERS: PCP Registered Nurse; Visit Provider Advanced Practice Midwife | DX: Z13.89 Encounter for screening for other disorder (principal) ==

== ENCOUNTER → 2022-08-27 10:54 | Outpatient (BNVA) | payer MEDICAID, SELFPAY | PROVIDERS: PCP Registered Nurse; Visit Provider Nurse Practitioner | DX: K21.9 Gastro-esophageal reflux disease without esophagitis (principal); K59.04 Chronic idiopathic constipation; Z90.49 Acquired absence of other specified parts of digestive tract; Z90.3 Acquired absence of stomach [part of] | CPT/HCPCS: 99212 ==

== ENCOUNTER 2022-12-20 08:56 | Outpatient (REF) | payer MEDICAID, SELFPAY ==
--- NOTE | ~2022-12-20 | MM_ITS ---
EXAMINATION: MM SCREENING DIGITAL BREAST TOMOSYNTHESIS, BILATERAL CLINICAL INFORMATION: Screening. Asymptomatic. The lifetime risk of breast cancer based on the Tyrer-Cuzick Model is 8%. COMPARISON: Multiple prior breast imaging studies including most recent mammography 12/10/2021. TECHNIQUE: Digital breast tomosynthesis is performed in both the craniocaudal and mediolateral oblique views along with computer-aided detection (CAD). Synthesized 2D images are generated from the tomosynthesis. FINDINGS: There are scattered areas of fibroglandular density (ACR BI-RADS breast composition Category b). There are no significant masses, abnormal calcifications, or other abnormalities. Parenchymal pattern is similar to prior studies. There is no developing density or architectural abnormality. Biopsy clip marker again seen posterior upper outer right breast. The axilla and skin contours are unremarkable. No significant changes. MM/MM tomosynthesis screening BI IMPRESSION: No mammographic evidence of malignancy. ASSESSMENT: BI-RADS 1: Negative RECOMMENDATION: Routine annual mammography screening. This patient's information was entered into a reminder system with a target due date for their next mammogram.
== END 2022-12-20 08:57 | disposition home or self-care (01) ==
LOC: HO.MAMMO 08:56
PROVIDERS: PCP Registered Nurse; Visit Provider Advanced Practice Midwife
DX: Z12.31 Encounter for screening mammogram for malignant neoplasm of breast (principal)
CPT/HCPCS: 77063; 77067

== ENCOUNTER 2023-02-09 12:57 | Outpatient (REF) | payer MEDICAID, SELFPAY ==
--- NOTE | ~2023-02-09 | MR_ITS ---
EXAMINATION: MR PELVIS WITHOUT CONTRAST CLINICAL INFORMATION: Chronic sacral pain. COMPARISON: 04/27/2022. TECHNIQUE: Multiplanar MR imaging was obtained through the pelvis without contrast on a 1.5 Mohini magnet. FINDINGS: BONES AND CARTILAGE: Sacroiliac joints appear well preserved without appreciable cartilage loss, articular cortical remodeling, articular erosions, subchondral marrow signal abnormality, or marginal osteophytes. No significant sclerosis. Sacrum is intact and normal in signal intensity. Pubic symphysis and hip joints also appear relatively well preserved. There is slight anterior offset of the 2nd coccygeal segment by 2 mm as seen on the sagittal images, similar to the prior radiographs. No surrounding edema signal is seen in this region. No surrounding fluid. Hip joints and imaged portion of the lower lumbar spine are also normal in appearance. No osseous lesions, stress reactions, or fractures. JOINT FLUID AND BURSAE: No effusions or bursitis. MUSCLES AND TENDONS: Musculature is normal in signal intensity without fatty atrophy or edema signal. Tendons are intact. INTRAPELVIC SOFT TISSUES: scar is evident at the lower uterine segment. No acute intrapelvic findings. No adenopathy. No appreciable free fluid. NEUROVASCULAR STRUCTURES: No appreciable sites of nerve impingement are identified on these images. Vasculature is unremarkable. MR/MR pelvis wo con IMPRESSION: 1. No acute osseous or soft tissue abnormalities are identified in the pelvis. 2. Slight anterior offset of the 2nd coccygeal segment at the junction with the 1st, similar to the prior radiographs. This could be developmental in nature, though instability from prior trauma is possible. There is no significant surrounding edema signal in this region to confirm inflammation or irritation in this region.
== END 2023-02-09 12:58 | disposition home or self-care (01) ==
LOC: HO.MRI 12:57
PROVIDERS: PCP Registered Nurse; Visit Provider Registered Nurse
DX: M53.3 Sacrococcygeal disorders, not elsewhere classified (principal)
CPT/HCPCS: 72195

== ENCOUNTER 2023-03-15 13:00 | Outpatient (AMB) | payer MEDICAID, SELFPAY ==
[2023-03-15 13:03] VITALS: BMI 28.6
--- NOTE | 2023-03-15 13:03 | A.OFFVIS_ITS ---
Intake Vital Signs 03/15/23 13:03 Height 5 ft 1 in Weight 151 lb 3.794 oz BMI 28.6 Blood Pressure Location Lt brachial Position Sitting Intake Visit Reasons: 6 month follow up Intake Note: Patient presents to in office 6 months follow up appointment for GERD and CIC. CC: Patient reports doing well and denies having any GI symptoms today. 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 She is on senna for her constipation.? She remains satisfied with her GI regimen.? She has no new medical conditions to report and no changes in her other chronic medications.? Return office visit in 6 months (2) Chronic idiopathic constipation: ?Code(s): K59.04 - Chronic idiopathic constipation ? ? ? Medications: New pantoprazole 40 mg PO DAILY 30 tabs 6RF K21.9 - Gastro-eso phageal reflux dis ease without esoph agitis, R10.10 - U pper abdominal kapil n, unspecified ? sennosides (senna) 17.2 mg (2 x 8.6 m g) PO BEDTIME PRN 60 caps 6RF consti pation K59.04 - Chronic i diopathic constipa tion ? Refilled dicyclomine 20 mg (2 x 10 mg) PO QID PRN 240 cap s 6RF for cramps K58.9 - Irritable bowel syndrome wit hout diarrhea ? simethicone ?? aft er meals 180 mg PO QID 120 caps 3RF 30 days ? TODAY'S VISIT Wallisian #declines She continues to do well. She continues on her pantoprazole with good control of her GERD her dicyclomine for her cramping and her simethicone for bloating.? She is on senna for her constipation.? She remains satisfied with her GI regimen. ROV 6 mos. [facility] Medical History Anxiety with depression Bipolar 1 disorder BMI 36.0-36.9,adult BMI 37.0-37.9, adult BMI 38.0-38.9,adult BMI 39.0-39.9,adult BMI 40.0-44.9, adult Cervical cancer screening Chronic idiopathic constipation COVID-19 vaccine series completed Depression GERD (gastroesophageal reflux disease) IBS (irritable bowel syndrome) Nausea Obesity Obesity (BMI 30-39.9) Patellofemoral arthralgia of both knees Potential exposure to STD Preprocedural examination PTSD (post-traumatic stress disorder) Steatosis, liver Upper abdominal pain Vitamin D deficiency Well woman exam with routine gynecological exam Surgical History History of dilation and curettage History of esophagogastroduodenoscopy (EGD) Hx of section S/P laparoscopic cholecystectomy S/P laparoscopic sleeve gastrectomy Family History Mother No problems noted. Father No problems noted. Brother No problems noted. Sister No problems noted. Daughter No problems noted. 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 Female Reproductive History Menstrual Age of Menarche: 12 Review of Systems Const Denies fatigue, Denies fever(s), Denies night sweats, Denies poor appetite and Denies weight loss ENT Reports Normal hearing present, Denies dental pain, Denies dysphagia, Denies hearing loss, Denies mouth pain, Denies odynophagia, Denies throat swelling, Denies tongue swelling and Reports other (Dentition adequate) Card Reports no additional complaints Resp Reports no additional complaints GI Denies abdominal pain, Denies melena, Denies bloating, Denies hematochezia, Reports constipation, Denies GI cramping, Denies dysphagia, Denies excessive flatus, Denies early satiety, Reports heartburn, Denies diarrhea, Denies nausea, Denies odynophagia, Denies vomiting and Denies hematemesis Skin/Breast Denies pruritus, Denies lesions, Denies rash and Denies jaundice Neuro Reports Normal hearing present and Denies Abnormal speech present Endo Denies fatigue Aller/Immun Denies throat swelling and Denies tongue swelling Physical Exam Vital Signs: BMI result Body Mass Index 28.6 Const General: cooperative, no acute distress, well developed and well groomed Nutritional Appearance: average body habitus and well nourished Orientation/consciousness: oriented to person, oriented to place and oriented to time Limitations: language barrier HEENT Head: Yes normocephalic and Yes atraumatic Eyes General: appearance normal, both eyes and all related structures Pupils: Equal, round and reactive pupils present Neck Neck: Yes normal visual inspection and Yes no lymphadenopathy Thyroid: Thyroid normal Resp Effort & Inspection: normal respiratory effort and able to speak in complete sentences Auscultation: clear to auscultation bilaterally Cardio Rate: regular rate Rhythm: regular rhythm Heart sounds: Normal, physiologic split S2 sound present Peripheral pulses: radial pulses present and posterior tibial pulses present GI Inspection: No distended and No Abdominal panniculus present Palpation (GI): Soft to palpation, nontender, no guarding, not rigid and No hepatosplenomegaly present Percussion: Yes normal to percussion Auscultation: normal bowel sounds Rectal Exam - Female: deferred Skin General skin exam: no rashes or lesions noted, turgor normal, skin not dry, no jaundice, No spider nevi and no striae Rashes: no rashes Nails: normal Neuro General: oriented to person, oriented to place and oriented to time Cranial nerves: Yes Equal, round and reactive pupils present and Yes Normal hearing present Speech: No Abnormal speech present Extrem General: Yes normal to inspection, No clubbing, No cyanosis and No edema Psych Appearance: grossly normal and well kempt Mental Status: mental status grossly normal Speech and movement: Normal speech and movement present Affect: normal affect Attitude: cooperative Thought process: Normal thought process present and not confabulating Thought content: Normal thought content present Insight: Fair insight present (Psych) Judgement: Fair judgement present (Psych) Assessment & Plan Assessment & Plan (1) Chronic idiopathic constipation: Code(s): K59.04 - Chronic idiopathic constipation Plan: Wallisian #declines She continues to do well. She continues on her pantoprazole with good control of her GERD her dicyclomine for her cramping and her simethicone for bloating.? She is on senna for her constipation.? She remains satisfied with her GI regimen. ROV 6 mos. (2) GERD (gastroesophageal reflux disease): Comment: UGI - mild reflux only Code(s): K21.9 - Gastro-esophageal reflux disease without esophagitis Coding Level of Care Code Est Pt Level 3 (72777) Diagnoses Chronic idiopathic constipation K59.04 GERD (gastroesophageal reflux disease) K21.9
== END 2023-03-15 13:25 | disposition home or self-care (01) ==
PROVIDERS: PCP Registered Nurse; Visit Provider Nurse Practitioner
DX: K59.04 Chronic idiopathic constipation (principal); K21.9 Gastro-esophageal reflux disease without esophagitis
CPT/HCPCS: 99213

== ENCOUNTER → 2023-03-15 13:00 | Outpatient (BNVA) | payer MEDICAID, SELFPAY | PROVIDERS: PCP Registered Nurse; Visit Provider Nurse Practitioner | DX: K59.04 Chronic idiopathic constipation (principal); K21.9 Gastro-esophageal reflux disease without esophagitis; Z79.899 Other long term (current) drug therapy | CPT/HCPCS: 99212 ==

== ENCOUNTER 2023-06-15 10:24 | Outpatient (AMB) | payer MEDICAID, SELFPAY ==
--- NOTE | 2023-06-15 10:27 | A.OFFVIS_ITS ---
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 Patient reports off and on pain for many years but she states that her pain had gotten a little better with the help of medication. Patient reports she has a fall many years ago that caused her pain. 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 Going on for at least 2 years, from a fall. She fell on her buttocks. It did get better slightly but returned. Today says better for a few weeks. Does not know excarbate factors. Would get better spontaneously. Recent MRI pelvis reported no abnormalitiesosseous or soft tissue. Follows GI for GERD and constipation. Treatment done so far: tylenol therapy - several years ago [facility] Medical History (Updated 06/15/23 @ 10:46 by Gloria Rasheed MD) Myofascial pain Coccydynia Depression Steatosis, liver BMI 36.0-36.9,adult COVID-19 vaccine series completed Preprocedural examination Nausea BMI 37.0-37.9, adult PTSD (post-traumatic stress disorder) Potential exposure to STD Cervical cancer screening Well woman exam with routine gynecological exam Obesity (BMI 30-39.9) Patellofemoral arthralgia of both knees BMI 38.0-38.9,adult BMI 39.0-39.9,adult Obesity BMI 40.0-44.9, adult Vitamin D deficiency Bipolar 1 disorder Anxiety with depression Upper abdominal pain Chronic idiopathic constipation GERD (gastroesophageal reflux disease) IBS (irritable bowel syndrome) Surgical History S/P laparoscopic sleeve gastrectomy History of dilation and curettage S/P laparoscopic cholecystectomy Hx of section History of esophagogastroduodenoscopy (EGD) Family History Mother No problems noted. Father No problems noted. Brother No problems noted. Sister No problems noted. Daughter No problems noted. 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 Patient was appropriately conversant and oriented. Good historian. MSK: Inspection reveals appropriate head and neck positioning. No specific abnormalities found on inspection of the spine and all extremities. Some tenderness over quadratus lumbar muscles. No tenderness on coccyx but she points to that SI area use will pain. Lumbar ROM was full. Bilateral hip, knee and ankle ROM WNL. No ligamentous laxity or crepitance. No increased effusion. Straight-leg raising test negative. FABERE test negative. Strength is 5/5 in all muscle groups tested. No increased tone noted. Neurological: Mood appears normal, good affect, and appropriate for the circumstances. Neurologic examination of the upper and lower extremities was nonfocal with intact sensation, muscle stretch reflexes and without focal motor deficits. Call?s negative bilaterally. Babinski was down going bilaterally. Clonus was negative. Gait is non-antalgic without loss of balance. Results Reviewed Results Reviewed: I reviewed records from the following: PCP Assessment & Plan Assessment & Plan (1) Coccydynia: Code(s): M53.3 - Sacrococcygeal disorders, not elsewhere classified (2) Myofascial pain: Code(s): M79.18 - Myalgia, other site Plan Coccyx pain, though none today. Myofascial pain on quadratus lumborum. No signs of radiculopathy. Offered referral to Pain Management for possible coccyx injection. Since she does not have pain currently, she defers for now. She says she will call when she needs it. Offered referral to PT but she had poor experience with PT in the past, she defers. Recommended use of a donut pillow, hot Sitz bath and to take care of her chronic constipation so as not to exacerbate her tailbone pain. Assessment and plan discussed with patient, and patient was agreeable. All questions were answered thoroughly. Gloria Rasheed MD, BENJA Board Certified, [place] Board [employer] and Rehabilitation (ABPMR) Board Certified, [place] Board of Electrodiagnostic Medicine (ABEM) Coding Level of Care Code New Pt Level 3 (89401) Diagnoses Coccydynia M53.3 Myofascial pain M79.18
== END 2023-06-15 10:52 | disposition home or self-care (01) ==
PROVIDERS: PCP Registered Nurse; Visit Provider Physical Medicine & Rehabilitation
DX: M53.3 Sacrococcygeal disorders, not elsewhere classified (principal); M79.18 Myalgia, other site
CPT/HCPCS: 99203

== ENCOUNTER → 2023-06-15 10:24 | Outpatient (BNVA) | payer MEDICAID, SELFPAY | PROVIDERS: PCP Registered Nurse; Visit Provider Physical Medicine & Rehabilitation | DX: M53.3 Sacrococcygeal disorders, not elsewhere classified (principal); M79.18 Myalgia, other site | CPT/HCPCS: 99202 ==

== ENCOUNTER 2023-08-01 09:23 | Outpatient (REF) | payer MEDICAID, SELFPAY ==
[2023-08-01 17:54] LABS: CT PCR NOT DETECTED (Not Detect.); NG PCR NOT DETECTED (Not Detect.)
[2023-08-02 12:39] LABS: BV Int Neg Control Negative (Negative); BV Int Pos Control Positive (Positive)
== END 2023-08-01 09:24 | disposition home or self-care (01) ==
LOC: HO.LNP 09:23
PROVIDERS: Visit Provider Advanced Practice Midwife
DX: Z01.419 Encounter for gynecological examination (general) (routine) without abnormal findings (principal); E66.3 Overweight; Z68.29 Body mass index [BMI] 29.0-29.9, adult; Z20.2 Contact with and (suspected) exposure to infections with a predominantly sexual mode of transmission; Z11.3 Encounter for screening for infections with a predominantly sexual mode of transmission
CPT/HCPCS: 0353U; 87480; 87510; 87660; 99396

== ENCOUNTER 2023-08-01 09:23 | Outpatient (AMB) | payer MEDICAID, SELFPAY ==
--- NOTE | 2023-08-01 09:35 | A.OFFVIS_ITS ---
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 Allergies No Known Allergies Allergy (Verified 06/15/23 10:31) Medication List - Last Reconciled 08/01/23 by Mary Alice Cespedes CNM clonazepam 1 tab PO DAILY PRN cyanocobalamin (vitamin B-12) 500 mcg PO DAILY dicyclomine 20 mg (2 x 10 mg) PO QID PRN fluoxetine 20 mg PO QAM hydroxyzine HCl 25 mg PO BEDTIME pantoprazole 40 mg PO DAILY sennosides (senna) 17.2 mg (2 x 8.6 mg) PO BEDTIME PRN simethicone 180 mg PO QID 30 days Is last menstrual period known: Yes (07/15/23) Last menstrual period: 07/09/21 HPI 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 She has not worried about any STDs but accepts testing during the exam. We reviewed her Pap history she has no history of abnormals whatsoever and her last Pap was done 07/09/2021 so she will be due for the next Pap until 2025. She has maintained her weight loss after her bariatric surgery and walks at least half an hour a day at different times during the day but makes herself do it. She gets her yearly mammograms and she definitely had 1 last year though she does not remember what month and it was normal. She is waiting to meet her new primary at the [facility] as there is the usual change of P cc there [facility] Medical History (Updated 08/01/23 @ 10:29 by Mary Alice Cespedes CNM) Myofascial pain Coccydynia Depression Steatosis, liver BMI 36.0-36.9,adult COVID-19 vaccine series completed Preprocedural examination Nausea BMI 37.0-37.9, adult PTSD (post-traumatic stress disorder) Potential exposure to STD Cervical cancer screening Well woman exam with routine gynecological exam Obesity (BMI 30-39.9) Patellofemoral arthralgia of both knees BMI 38.0-38.9,adult BMI 39.0-39.9,adult Obesity BMI 40.0-44.9, adult Vitamin D deficiency Bipolar 1 disorder Anxiety with depression Upper abdominal pain Chronic idiopathic constipation GERD (gastroesophageal reflux disease) IBS (irritable bowel syndrome) Surgical History S/P laparoscopic sleeve gastrectomy History of dilation and curettage S/P laparoscopic cholecystectomy Hx of section History of esophagogastroduodenoscopy (EGD) Family History Mother No problems noted. Father No problems noted. Brother No problems noted. Sister No problems noted. Daughter No problems noted. 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 Female Reproductive History Menstrual Age of Menarche: 12 Date of last menstrual period: 07/09/21 Date of last pap smear: 07/15/23 (WNL) History of abnormal pap smear: No Physical Exam Vital Signs: Last Vital Signs Pulse 88 08/01/23 09:38 BP 126/82 08/01/23 09:38 Pulse Ox 98 08/01/23 09:38 Oxygen Delivery Method Room Air 08/01/23 09:38 BMI result Body Mass Index 29.1 Const General: healthy appearing, comfortable, no acute distress, well developed and alert Nutritional Appearance: average body habitus Orientation/consciousness: patient oriented x3 Limitations: no limitations HEENT Head: Yes normocephalic Neck Neck: Yes normal visual inspection Chest Chest palpation & inspection: normal inspection of the chest Breast/axilla inspection: normal inspection of the breasts and normal inspection of the axillae Breast/axilla palpation: normal palpation of the breasts and normal palpation of the axillae Resp Effort & Inspection: normal respiratory effort GI Inspection: Yes normal to inspection, No Abdominal wall edema and No distended Palpation (GI): Soft to palpation and nontender General: Yes bladder normal to palpation External Female Exam: normal external appearance and normal appearance of the urethra Speculum Exam - Vagina: normal appearance of the vagina, normal palpation and normal vaginal discharge Speculum Exam - Cervix: normal appearance of the cervix, normal palpation and nontender Bimanual exam- vagina & uterus: normal bimanual exam, normal palpation, uterine size normal, bladder normal to palpation, consistency normal, normal palpation, uterine mobility normal, uterine shape normal, No Cervical tenderness present, non-tender and no cervical motion tenderness Bimanual Exam- Adnexa, other: normal adnexae, no masses, normal and No adnexal tenderness Neuro General: patient oriented x3 Results Reviewed Results Reviewed: neptali: Fara Cox Age/Sex: 41/F Attending: Mary Alice Cespedes CNM : 1980 Submitted by: Mary Alice Cespedes CNM Copies to: [facility] MR #: [id number] Status: DEP REF Collected: 07/09/21 Location: .LAB Received: 07/15/21 Interpretation Satisfactory for evaluation. Mild inflammation. Negative for intraepithelial lesion or malignancy. HPV mRNA E6/E7: NOT DETECTED This assay detects E6/E7 viral messenger RNA (mRNA) from 14 high-risk HPV types (16, 18, 31, 33, 35, 39, 45, 51, 52, 56, 58, 59, 66, 68) HPV testing performed by [facility], [place], [place]. See reference laboratory portion of the EMR for entire report. Clinical Information LMP: 06/17/21 Previous PAP test: KARAN Mendoza Material Received ThinPrep-Cervical Copies To [facility] [address] [place] [address] Mary Alice Cespedes [address] [place] [place] [address] Electronically Signed By: ENEIDA Almonte (ASCP) 07/27/21 [id number] The Pap Test is a screening procedure with the inherent possibility of both false negative and false positive results. Results should be interpreted in the context of historic and current clinical findings. Reliability of the Pap Test is enhanced by performing the test on a regular repetitive basis. Patient: Jean Pierre Page 1 of 1 Assessment & Plan Assessment & Plan (1) Well woman exam with routine gynecological exam: Code(s): Z01.419 - Encounter for gynecological examination (general) (routine) without abnormal findings (2) Cervical cancer screening: Comment: 07/09/21 pap= neg, neg hpv Code(s): Z12.4 - Encounter for screening for malignant neoplasm of cervix (3) Overweight (BMI 25.0-29.9): Code(s): E66.3 - Overweight Plan -----Discussed in this visit the following: healthy balanced diet, regular and consistent exercise, getting recommended health screens, doing the best she can for her particular health concerns, kegel exercises, pap smear screening and followup recommendations, mammography screening and SBE, normal changes in cycles in her life stage--- . She accepts the screening tests with the pelvic exam but declines blood work as she does not feel a need. She is up-to-date on her mammograms. Reviewed that her next Pap will be due in 2025 per the guidelines as she has never had an abnormal 1. Reviewed that we recommend annual paedodontist exams however if other health issues came to the forefront it was be important for her to know that just her next Pap smear would be due in 2025 if nothing else changed in her health. Reviewed how periods can change in the su menopausal years and the important thing is that she is getting regular periods if that ever change that would be something to look into. Congratulated on her excellent self-care regimen maintaining her weight loss and being physically active. Coding Level of Care Code Est Pt Prev Care 40-64y(78061) Diagnoses Well woman exam with routine gynecological exam Z01.419 Cervical cancer screening Z12.4 Overweight (BMI 25.0-29.9) E66.3
[2023-08-01 09:38] VITALS: BP 126/82; PULSE 88; O2SAT 98; BMI 29.1
== END 2023-08-01 10:32 | disposition home or self-care (01) ==
PROVIDERS: Visit Provider Advanced Practice Midwife
DX: Z01.419 Encounter for gynecological examination (general) (routine) without abnormal findings (principal); Z12.4 Encounter for screening for malignant neoplasm of cervix; E66.3 Overweight
CPT/HCPCS: 99396

== ENCOUNTER 2023-09-14 12:48 | Outpatient (AMB) | payer MEDICAID, SELFPAY ==
--- NOTE | 2023-09-14 12:55 | A.OFFVIS_ITS ---
Intake Vital Signs 09/14/23 12:59 Height 5 ft 1 in Weight 152 lb 1.903 oz BMI 28.7 BP 125/64 Blood Pressure Location Lt brachial Position Sitting Pulse 84 Intake Visit Reasons: 6 month follow up Intake Note: Fara presents in the office as a 6 month follow up. CC: She is not having any concerns at this time. Line Service Person Required: Yes Line Service Person Name: Sanjay [id number] Allergies No Known Allergies Allergy (Verified 09/14/23 13:00) HPI 6 month follow up HPI Details Assessment & Plan (1) Chronic idiopathic constipation: Code(s): K59.04 - Chronic idiopathic constipation Plan: Rufus sydney She continues to do well. She continues on her pantoprazole with good control of her GERD her dicyclomine for her cramping and her simethicone for bloating.? She is on senna for her constipation.? She remains satisfied with her GI regimen. ROV 6 mos. (2) GERD (gastroesophageal reflux diseas e): Comment: UGI - mild reflux only Code(s): K21.9 - Gastro-esophageal reflux disease without esophagitis TODAY'S VISIT Rufus grimes She continues to do well. She continues on her pantoprazole with good control of her GERD her dicyclomine for her cramping and her simethicone for bloating.? She is on senna for her constipation.? She remains satisfied with her GI regimen. ROV 6 mos. [facility] Medical History (Updated 08/01/23 @ 10:29 by Mary Alice Cespedes CNM) Myofascial pain Coccydynia Depression Steatosis, liver BMI 36.0-36.9,adult COVID-19 vaccine series completed Preprocedural examination Nausea BMI 37.0-37.9, adult PTSD (post-traumatic stress disorder) Potential exposure to STD Cervical cancer screening Well woman exam with routine gynecological exam Obesity (BMI 30-39.9) Patellofemoral arthralgia of both knees BMI 38.0-38.9,adult BMI 39.0-39.9,adult Obesity BMI 40.0-44.9, adult Vitamin D deficiency Bipolar 1 disorder Anxiety with depression Upper abdominal pain Chronic idiopathic constipation GERD (gastroesophageal reflux disease) IBS (irritable bowel syndrome) Surgical History S/P laparoscopic sleeve gastrectomy History of dilation and curettage S/P laparoscopic cholecystectomy Hx of section History of esophagogastroduodenoscopy (EGD) Family History Mother No problems noted. Father No problems noted. Brother No problems noted. Sister No problems noted. Daughter No problems noted. 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 Female Reproductive History Menstrual Age of Menarche: 12 Review of Systems Const Denies fatigue, Denies fever(s), Denies night sweats, Denies poor appetite and Denies weight loss Eyes Details: glasses Reports requires corrective lenses ENT Reports Normal hearing present, Denies dental pain, Denies dysphagia, Denies hearing loss, Denies mouth pain, Denies odynophagia, Denies throat swelling, Denies tongue swelling and Reports other (Dentition adequate) Card Reports no additional complaints Resp Reports no additional complaints GI Details: Denies abdominal pain, Denies melena, Denies bloating, Denies hematochezia, Reports constipation, Denies GI cramping, Denies dysphagia, Denies excessive flatus, Denies early satiety, Reports heartburn, Denies diarrhea, Denies nausea, Denies odynophagia, Denies vomiting and Denies hematemesis Skin/Breast Denies pruritus, Denies lesions, Denies rash and Denies jaundice Neuro Reports Normal hearing present and Denies Abnormal speech present Endo Denies fatigue Aller/Immun Denies throat swelling and Denies tongue swelling Physical Exam Vital Signs: Last Vital Signs Pulse 84 09/14/23 12:59 BP 125/64 09/14/23 12:59 BMI result Body Mass Index 28.7 Const General: cooperative, no acute distress, well developed and well groomed Nutritional Appearance: average body habitus and well nourished Orientation/consciousness: oriented to person, oriented to place and oriented to time Limitations: No language barrier HEENT Head: Yes normocephalic and Yes atraumatic Eyes General: appearance normal, both eyes and all related structures Pupils: Equal, round and reactive pupils present Neck Neck: Yes normal visual inspection and Yes no lymphadenopathy Thyroid: Thyroid normal Resp Effort & Inspection: normal respiratory effort and able to speak in complete sentences Auscultation: clear to auscultation bilaterally Cardio Rate: regular rate Rhythm: regular rhythm Heart sounds: Normal, physiologic split S2 sound present Peripheral pulses: radial pulses present and posterior tibial pulses present GI Inspection: No distended, No Abdominal panniculus present and Yes obesity Palpation (GI): Soft to palpation, nontender, no guarding, not rigid and No hepatosplenomegaly present Percussion: Yes normal to percussion Auscultation: normal bowel sounds Rectal Exam - Female: deferred Skin General skin exam: no rashes or lesions noted, turgor normal, skin not dry, no jaundice, No spider nevi and no striae Rashes: no rashes Nails: normal Neuro General: oriented to person, oriented to place and oriented to time Cranial nerves: Yes Equal, round and reactive pupils present and Yes Normal hearing present Speech: No Abnormal speech present Extrem General: Yes normal to inspection, No clubbing, No cyanosis and No edema Psych Appearance: grossly normal and well kempt Mental Status: mental status grossly normal Speech and movement: Normal speech and movement present Affect: normal affect Attitude: cooperative Thought process: Normal thought process present and not confabulating Thought content: Normal thought content present Insight: Fair insight present (Psych) Judgement: Fair judgement present (Psych) Assessment & Plan Assessment & Plan (1) Chronic idiopathic constipation: Code(s): K59.04 - Chronic idiopathic constipation (2) GERD (gastroesophageal reflux disease): Comment: UGI - mild reflux only Code(s): K21.9 - Gastro-esophageal reflux disease without esophagitis Plan She continues to do well. She continues on her pantoprazole with good control of her GERD her dicyclomine for her cramping and her simethicone for bloating.? She is on senna for her constipation.? She remains satisfied with her GI regimen. ROV 6 mos. Medications: Refilled simethicone after meals 180 mg PO QID 30 days 120 caps 6RF pantoprazole 40 mg PO DAILY 90 tabs 2RF K21.9 - Gastro-esophageal reflux disease without esophagitis, R10.10 - Upper abdominal pain, unspecified sennosides (senna) 17.2 mg (2 x 8.6 mg) PO BEDTIME PRN 60 caps 6RF constipation K59.04 - Chronic idiopathic constipation Coding Level of Care Code Est Pt Level 3 (45634) Diagnoses Chronic idiopathic constipation K59.04 GERD (gastroesophageal reflux disease) K21.9
[2023-09-14 12:59] VITALS: BP 125/64; PULSE 84; BMI 28.7
== END 2023-09-14 13:16 | disposition home or self-care (01) ==
PROVIDERS: PCP Registered Nurse; Visit Provider Nurse Practitioner
DX: K59.04 Chronic idiopathic constipation (principal); K21.9 Gastro-esophageal reflux disease without esophagitis
CPT/HCPCS: 99213

== ENCOUNTER → 2023-09-14 12:48 | Outpatient (BNVA) | payer MEDICAID, SELFPAY | PROVIDERS: PCP Registered Nurse; Visit Provider Nurse Practitioner | DX: K59.04 Chronic idiopathic constipation (principal); K21.9 Gastro-esophageal reflux disease without esophagitis | CPT/HCPCS: 99212 ==

== ENCOUNTER 2023-12-23 08:48 | Outpatient (REF) | payer MEDICAID, SELFPAY ==
--- NOTE | ~2023-12-23 | MM_ITS ---
EXAMINATION: MM SCREENING DIGITAL BREAST TOMOSYNTHESIS, BILATERAL CLINICAL INFORMATION: Screening. Asymptomatic. COMPARISON: Mammography: This study is compared with prior exams dating back to 2018. TECHNIQUE: Digital breast tomosynthesis is performed in both the craniocaudal and mediolateral oblique views along with computer-aided detection (CAD). Synthesized 2D images are generated from the tomosynthesis. FINDINGS: There are scattered areas of fibroglandular density (ACR BI-RADS breast composition Category b). There are no significant masses, abnormal calcifications, or other abnormalities. There is a biopsy tissue marker in the upper outer quadrant of the right breast. MM/MM tomosynthesis screening BI IMPRESSION: No mammographic evidence of malignancy. ASSESSMENT: BI-RADS BI-RADS 2 - Benign Findings RECOMMENDATION: Routine annual mammography screening. 1 year F/U This examination should not preclude the clinical evaluation of a suspicious palpable abnormality. This patient's information was entered into a reminder system with a target due date for their next mammogram. BI-RADS 2
== END 2023-12-23 08:49 | disposition home or self-care (01) ==
LOC: HO.MAMMO 08:48
PROVIDERS: Visit Provider Registered Nurse
DX: Z12.31 Encounter for screening mammogram for malignant neoplasm of breast (principal)
CPT/HCPCS: 77063; 77067

== ENCOUNTER → 2023-12-23 09:00 | Outpatient (BNV) | payer MEDICAID, SELFPAY | PROVIDERS: Visit Provider Radiology Diagnostic Radiology | DX: Z12.31 Encounter for screening mammogram for malignant neoplasm of breast (principal) | CPT/HCPCS: 77063; 77067 ==

== ENCOUNTER 2024-03-14 12:54 | Outpatient (AMB) | payer MEDICAID, SELFPAY ==
[2024-03-14 12:58] VITALS: BP 133/83; PULSE 78; BMI 30.2
--- NOTE | 2024-03-14 12:58 | MHC.OFFVIS ---
Vital Signs 03/14/24 12:58 Height 5 ft 1 in Weight 159 lb 9.835 oz BMI 30.2 BP 133/83 Blood Pressure Location Lt brachial Position Sitting Pulse 78 Intake Visit Reasons: 6 month follow up CIC, GERD Intake Note: Patient in office today in 6 months follow up of CIC and GERD. CC: Patient reports doing well and denies having any new GI concerns today. Water Safety Instructor Required: No Accompanied by: Self / Same As Patient Allergies No Known Allergies Allergy (Verified 03/14/24 13:03) HPI HPI 6 month follow up CIC, GERD: Details: Assessment & Plan (1) Chronic idiopathic constipation: Code(s): K59.04 - Chronic idiopathic constipation Plan: Rufus grimes She continues to do well. She continues on her pantoprazole with good control of her GERD her dicyclomine for her cramping and her simethicone for bloating.? She is on senna for her constipation.? She remains satisfied with her GI regimen. ROV 6 mos. (2) GERD (gastroesophageal reflux disease): Comment: UGI - mild reflux only Code(s): K21.9 - Gastro-esophageal reflux disease without esophagitis TODAY'S VISIT Rufus grimes She continues to do well. She continues on her pantoprazole with good control of her GERD her dicyclomine for her cramping and her simethicone for bloating.? She is on senna for her constipation.? She remains satisfied with her GI regimen. ROV 6 mos. [facility] Medical History (Updated 03/14/24 @ 13:08 by EPIFANIO Kramer) Morbid obesity Well woman exam with routine gynecological exam Myofascial pain Coccydynia Depression Steatosis, liver BMI 36.0-36.9,adult COVID-19 vaccine series completed Preprocedural examination Nausea BMI 37.0-37.9, adult PTSD (post-traumatic stress disorder) Potential exposure to STD Cervical cancer screening Obesity (BMI 30-39.9) Patellofemoral arthralgia of both knees BMI 38.0-38.9,adult BMI 39.0-39.9,adult Obesity BMI 40.0-44.9, adult Vitamin D deficiency Bipolar 1 disorder Anxiety with depression Upper abdominal pain Chronic idiopathic constipation GERD (gastroesophageal reflux disease) IBS (irritable bowel syndrome) Surgical History (Updated 03/14/24 @ 13:08 by EPIFANIO Kramer) S/P laparoscopic sleeve gastrectomy History of dilation and curettage S/P laparoscopic cholecystectomy Hx of section History of esophagogastroduodenoscopy (EGD) Family History Mother No problems noted. Father No problems noted. Brother No problems noted. Sister No problems noted. Daughter No problems noted. 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 Female Reproductive History Menstrual Age of Menarche: 12 Review of Systems Const Denies fatigue, Denies fever(s), Denies night sweats, Denies poor appetite and Denies weight loss ENT Reports Normal hearing present, Denies dental pain, Denies dysphagia, Denies hearing loss, Denies mouth pain, Denies odynophagia, Denies throat swelling, Denies tongue swelling and Reports other (Dentition adequate) Card Reports no additional complaints Resp Reports no additional complaints GI Details: Denies abdominal pain, Denies melena, Reports bloating, Denies hematochezia, Reports constipation, Denies GI cramping, Denies dysphagia, Denies excessive flatus, Denies early satiety, Reports heartburn, Denies diarrhea, Denies nausea, Denies odynophagia, Denies vomiting and Denies hematemesis Skin/Breast Denies pruritus, Denies lesions, Denies rash and Denies jaundice Neuro Reports Normal hearing present and Denies Abnormal speech present Endo Denies fatigue Aller/Immun Denies throat swelling and Denies tongue swelling Physical Exam Vital Signs: Last Vital Signs Pulse 78 03/14/24 12:58 BP 133/83 03/14/24 12:58 BMI result Body Mass Index 30.2 Const General: cooperative, no acute distress, well developed and well groomed Nutritional Appearance: well nourished and obese Orientation/consciousness: oriented to person, oriented to place and oriented to time Limitations: No language barrier HEENT Head: Yes normocephalic and Yes atraumatic Eyes General: appearance normal, both eyes and all related structures Pupils: Equal, round and reactive pupils present Neck Neck: Yes normal visual inspection and Yes no lymphadenopathy Thyroid: Thyroid normal Resp Effort & Inspection: normal respiratory effort and able to speak in complete sentences Auscultation: clear to auscultation bilaterally Cardio Rate: regular rate Rhythm: regular rhythm Heart sounds: Normal, physiologic split S2 sound present Peripheral pulses: radial pulses present and posterior tibial pulses present GI Inspection: No distended, No Abdominal panniculus present and Yes obesity Palpation (GI): Soft to palpation, nontender, no guarding, not rigid and No hepatosplenomegaly present Percussion: Yes normal to percussion Auscultation: normal bowel sounds Rectal Exam - Female: deferred Skin General skin exam: no rashes or lesions noted, turgor normal, skin not dry, no jaundice, No spider nevi and no striae Rashes: no rashes Nails: normal Neuro General: oriented to person, oriented to place and oriented to time Cranial nerves: Yes Equal, round and reactive pupils present and Yes Normal hearing present Speech: No Abnormal speech present Extrem General: Yes normal to inspection, No clubbing, No cyanosis and No edema Psych Appearance: grossly normal and well kempt Mental Status: mental status grossly normal Speech and movement: Normal speech and movement present Affect: normal affect Attitude: cooperative Thought process: Normal thought process present and not confabulating Thought content: Normal thought content present Insight: Limited insight present (Psych) Judgement: Limited judgement present (Psych) Assessment & Plan Assessment & Plan (1) GERD (gastroesophageal reflux disease): Comment: UGI - mild reflux only Code(s): K21.9 - Gastro-esophageal reflux disease without esophagitis Category: Medical (2) Chronic idiopathic constipation: Code(s): K59.04 - Chronic idiopathic constipation Category: Medical Plan English #declines She continues to do well. She continues on her pantoprazole with good control of her GERD her dicyclomine for her cramping and her simethicone for bloating.? She is on senna for her constipation.? She remains satisfied with her GI regimen. ROV 6 mos. Medications: Refilled pantoprazole 40 mg PO DAILY 90 tabs 2RF K21.9 - Gastro-esophageal reflux disease without esophagitis, R10.10 - Upper abdominal pain, unspecified sennosides (senna) 17.2 mg (2 x 8.6 mg) PO BEDTIME PRN 60 caps 6RF constipation K59.04 - Chronic idiopathic constipation simethicone after meals 180 mg PO QID 120 caps 6RF 30 days dicyclomine 20 mg (2 x 10 mg) PO QID PRN 240 caps 6RF for cramps K58.9 - Irritable bowel syndrome without diarrhea Coding Level of Care Code Est Pt Level 3 (16626) Diagnoses GERD (gastroesophageal reflux disease) K21.9 Chronic idiopathic constipation K59.04
== END 2024-03-14 13:10 | disposition home or self-care (01) ==
PROVIDERS: PCP Registered Nurse; Visit Provider Nurse Practitioner
DX: K21.9 Gastro-esophageal reflux disease without esophagitis (principal); K59.04 Chronic idiopathic constipation
CPT/HCPCS: 99213

== ENCOUNTER → 2024-03-14 12:54 | Outpatient (BNVA) | payer MEDICAID, SELFPAY | PROVIDERS: PCP Registered Nurse; Visit Provider Nurse Practitioner | DX: K59.04 Chronic idiopathic constipation (principal); K58.1 Irritable bowel syndrome with constipation; K21.9 Gastro-esophageal reflux disease without esophagitis | CPT/HCPCS: 99212 ==

== ENCOUNTER 2024-09-26 10:45 | Outpatient (AMB) | payer MEDICAID, SELFPAY ==
--- NOTE | 2024-09-26 10:49 | A.OFFVIS_ITS ---
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 Her last period was August 10. She has a period tracker and she has been tracking her periods and in the past year sometimes her periods have been very late she did skip a period in between 2022 and 2023 for several months. She also has been getting hot flashes. She thinks it is because she is in perimenopause. Her mother went through menopause around age 35 or 36 so she thinks that is what is going on she is on multiple medications including clonidine and she says her psychiatrist told her the clonidine is similar to new medication that helps her hot flashes. She takes it at night before bed help with sleep she does not get hot flashes at night. She is not worried about it and she does not want to take any hormones or anything or anything hormonal for control either. She uses condoms for control so she is not worried about even though her periods 19 days late. She also has no worries whatsoever about STIs as she is confident about her relationship. Last Pap smear was- so she is not due for Pap until 2025. She has maintained her weight loss after her bariatric surgery and she is happy with that she does some exercises at home walks and tries to well to stay healthy and she thinks she gets enough calcium in her diet as well. She gets her mammograms every year. She is also experiencing the other symptoms of menopause that she feels she can differentiate as different from other issues with depression and anxiety. [facility] Medical History (Updated 09/26/24 @ 12:01 by Mary Alice Cespedes CNM) Well woman exam with routine gynecological exam Morbid obesity Myofascial pain Coccydynia Depression Steatosis, liver BMI 36.0-36.9,adult COVID-19 vaccine series completed Preprocedural examination Nausea BMI 37.0-37.9, adult PTSD (post-traumatic stress disorder) Potential exposure to STD Cervical cancer screening Obesity (BMI 30-39.9) Patellofemoral arthralgia of both knees BMI 38.0-38.9,adult BMI 39.0-39.9,adult Obesity BMI 40.0-44.9, adult Vitamin D deficiency Bipolar 1 disorder Anxiety with depression Upper abdominal pain Chronic idiopathic constipation GERD (gastroesophageal reflux disease) IBS (irritable bowel syndrome) Surgical History (Updated 03/14/24 @ 13:08 by EPIFANIO Kramer) S/P laparoscopic sleeve gastrectomy History of dilation and curettage S/P laparoscopic cholecystectomy Hx of section History of esophagogastroduodenoscopy (EGD) Family History Mother No problems noted. Father No problems noted. Brother No problems noted. Sister No problems noted. Daughter No problems noted. 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 Female Reproductive History Menstrual Age of Menarche: 12 Duration of menses: 3-5 days Date of last menstrual period: 08/10/24 Total pregnancies: 3 Full term: 1 Ab spontaneous: 2 Date of last pap smear: 07/09/21 (negativw hpv, negative pap smear) History of abnormal pap smear: No Date of Mammogram: 12/23/23 (bi rad 2) History of abnormal mammogram: No Physical Exam Vital Signs: Last Vital Signs BP 132/80 09/26/24 10:56 BMI result Body Mass Index 30.2 Const General: healthy appearing, comfortable, no acute distress, well developed and alert Nutritional Appearance: average body habitus Orientation/consciousness: patient oriented x3 Limitations: no limitations HEENT Head: Yes normocephalic Neck Neck: Yes normal visual inspection Chest Chest palpation & inspection: normal inspection of the chest Breast/axilla inspection: normal inspection of the breasts and normal inspection of the axillae Breast/axilla palpation: normal palpation of the breasts and normal palpation of the axillae Resp Effort & Inspection: normal respiratory effort GI Inspection: Yes normal to inspection, No Abdominal wall edema and No distended Palpation (GI): Soft to palpation and nontender Other: Normal external exam some thinning of vaginal mucosa. Normal clear whitish healthy looking secretions cervix nulliparous pink smooth healthy appearing cervix and uterus well suspended and difficult to reach but mobile nontender adnexa nontender very good muscle tone. General: Yes bladder normal to palpation External Female Exam: normal external appearance and normal appearance of the urethra Speculum Exam - Vagina: normal appearance of the vagina, normal palpation and normal vaginal discharge Speculum Exam - Cervix: normal appearance of the cervix, normal palpation and nontender Bimanual exam- vagina & uterus: normal bimanual exam, normal palpation, uterine size normal, bladder normal to palpation, consistency normal, normal palpation, uterine mobility normal, uterine shape normal, No Cervical tenderness present, non-tender and no cervical motion tenderness Bimanual Exam- Adnexa, other: normal adnexae, no masses, normal and No adnexal tenderness Neuro General: patient oriented x3 Results Reviewed Results Reviewed: Name: Fara Cox Age/Sex: 41/F Attending: Mary Alice Cespedes CNM : 1980 Submitted by: Mary Alice Cespedes CNM Copies to: [facility] MR #: [id number] Status: DEP REF Collected: 07/09/21 Location: .LAB Received: 07/15/21 Interpretation Satisfactory for evaluation. Mild inflammation. Negative for intraepithelial lesion or malignancy. HPV mRNA E6/E7: NOT DETECTED This assay detects E6/E7 viral messenger RNA (mRNA) from 14 high-risk HPV types (16, 18, 31, 33, 35, 39, 45, 51, 52, 56, 58, 59, 66, 68) HPV testing performed by [facility], [place], [place]. See reference laboratory portion of the EMR for entire report. Clinical Information LMP: 06/17/21 Previous PAP test: 2017, WNL Material Received ThinPrep- Cervical Copies To [facility] [address] [place] [address] [phone] [address] [place] [id number] Electronically Signed By: ENEIDA Almonte (ASCP) 07/27/21 1988 The Pap Test is a screening procedure with the inherent possibility of both false negative and false positive results. Results should be interpreted in the context of historic and current clinical findings. Reliability of the Pap Test is enhanced by performing the test on a regular repetitive basis. Patient: Jean Pierre Page 1 of 1 Assessment & Plan Assessment & Plan (1) Cervical cancer screening: Comment: 07/09/21 pap= neg, neg hpv Code(s): Z12.4 - Encounter for screening for malignant neoplasm of cervix Category: Medical (2) Other specified irregular menstruation: Code(s): N92.5 - Other specified irregular menstruation Category: Medical (3) Obesity: Comment: Patient has generally maintained her weight loss post bariatric surgery and is happy with her weight tries to eat well and exercise. Code(s): E66.9 - Obesity, unspecified Category: Medical (4) Breast cancer screening: Code(s): Z12.39 - Encounter for other screening for malignant neoplasm of breast Category: Medical (5) Well woman exam with routine gynecological exam: Code(s): Z01.419 - Encounter for gynecological examination (general) (routine) without abnormal findings Category: Medical (6) Perimenopausal symptoms: Code(s): N95.1 - Menopausal and female climacteric states Category: Medical Plan -----Discussed in this visit the following: healthy balanced diet, regular and consistent exercise, getting recommended health screens, doing the best she can for her particular health concerns, kegel exercises, pap smear screening and followup recommendations, mammography screening and SBE, normal changes in cycles in her life stage--- .---Discussed normal changes that happen premenapausally, perimenapausally, and postmenopausally, and ways to handle them. Discussed the normal variation, and the range of experiences that women experience. Discussed nutrition, health, need for exercise, both weight-bearing and aerobic. Also discussed the normal changes that happen with vaginal mucosal thinning and sensitivity, and simple more natural ways of handling these challenges. Discussed her su menopausal symptoms at. Also discussed the it would be recommended that if she misses a period for more 3 months consideration to trial of Provera to help her bring on a menses and discussed what this would be like discussed that often best to try and prevent buildup of the lining of the uterus that happens sometimes in this situations need to hemorrhaging. She will think about it she believes that she is just in the su menopausal years and that this is all normal and she will wait see until there that usually we would provide Provera if she had missed her menses for 3 months. Discussed that since her mother did go through early menopause she is probably correct in her assessment. Congratulated on her continued weight loss and efforts to maintain the weight loss that she had achieved with her efforts bariatric surgery, discussed all of the issues in HPI at great length. Coding Level of Care Code Est Pt Prev Care 40-64y(07958) Diagnoses Cervical cancer screening Z12.4 Other specified irregular menstruation N92.5 Obesity E66.9 Breast cancer screening Z12.39 Well woman exam with routine gynecological exam Z01.419 Perimenopausal symptoms N95.1
[2024-09-26 10:56] VITALS: BP 132/80; BMI 30.2
--- OUTSIDE RECORDS SUMMARY | 2024-09-26 12:28 | XMS_ITS | Clinical Summary ---
Author Organization [employer] Address [address] [place] [address] 7t [place] [address] Care Team Providers Care Shooter'S Helper Name Role Phone Rocio Haque MD Primary Care Pro vider Allergies No known active allergies Medications clonazePAM (KlonoPIN) 0.5 MG tablet TAKE 1 TABLET BY MOUTH ONCE A DAY NEEDED NEEDED FOR ANXIETY 3 Active Diclofenac Sodium 1 % gel Apply 2 g topically every 6 (six) hours. 2 Active dicyclomine (Bentyl) 10 MG capsule TAKE TWO CAPSULE BY MOUTH 4 TIMES A DAY NEEDED FOR FOR CRAMPS 3 Active FLUoxetine (PROzac) 20 MG capsule TAKE 2 CAPSULES BY MOUTH EVERY DAY IN THE MORNING 3 Active hydrOXYzine HCl (Atarax) 10 MG tablet TAKE 1-2 TABLET BY MOUTH TWICE A DAY NEEDED NEEDED FOR ANXIETY 3 Active pantoprazole (ProtoNix) 40 MG EC tablet Take 40 mg by mouth in the morning. 3 Active Senna-Time 8.6 MG tablet TAKE 2 TABLETS BY MOUTH EVERY DAY AT BEDTIME NEEDED FOR CONSTIPATION 3 Active Simethicone Ultra Strength 180 MG capsule TAKE 1 CAPSULE BY MOUTH 4 TIMES A DAY AFTER MEALS FOR 30 DAYS 3 Active Active Problems Problem Noted Date Diagnosed Date Partial edentulism 08/14/2024 Open fracture of tooth 08/17/2023 Missing teeth, acquired 06/30/2023 Health care maintenance 02/27/2023 Overview (02/27/2023): Routine Health Maintenance: Immunizations: Up to date HIV: Nonreactive 04/13/22 Hep C: Nonreactive 04/13/22 Hepatitis B: 2022 guidelines CDC recommends screen all adults aged 18 years and older at least once in their lifetime using a triple panel test. patients screen every . Discuss next visit Pap Smear: 07/09/2021 NILM, HPV neg. Repeat 5 years, 2025 Mammogram: 12/20/22 Colonoscopy: Not due til age 45 Lung cancer: Discuss next visit Eye: 01/2023 Dental: Discuss next visit Sacral pain 11/12/2022 Overview (02/27/2023): Xray 04/27/22 WNL Treating Voltaren gel, ibuprofen/Tylenol PRN; Lidocaine patches DME pending sacral cushion Ordered MRI pelvis, performed 02/09/23, pending results Assessment & Plan (02/27/2023 12:40 AM EDT): Notify MRI results when received If abnormal, refer Ortho Continue meds above Declines physical therapy again, states not helpful F/u 3 months or sooner PRN with new PCP Patellofemoral arthralgia of both knees 11/13/19 23 Osteoarthritis of knee 04/16/2022 Overview (02/27/2023): Declines imaging and PT Normal R knee xray 03/03/21 and Left knee showed 2. There is a very small left knee joint effusion. 3. There is minimal osteoarthritic change of the left patellofemoral compartment. Recommended stretching, Ice/heat Bipolar I disorder 04/02/2021 Chronic constipation 04/02/2021 Overview (04/20/2023): GI appt 08/27/22 Rx dicyclomine for cramping; simethicone PRN for bloating Senna 2 tabs PO at bedtime PRN for constipation Gastroesophageal reflux disease 01/13/2015 Overview (04/20/2023): GI appt 08/27/22 Rx pantopraozole 40 mg daily Depressive disorder 09/25/2014 History of cholecystectomy 06/02/2012 Obesity 04/18/2012 Anxiety 04/18/2012 Encounters Date Type Department Care Team Description 09/11/2024 10:00 AM EST Office Visit [facility] [address] [place] [address] Jack Delaney DDS Partial edentulism, unspecified edentulism class (Primary Dx) 08/14/2024 10:00 AM EST Office Visit [facility] [address] [place] [address] Jack Delaney DDS Partial edentulism, unspecified edentulism class (Primary Dx) 07/24/2024 Telephone [facility] [address] [place] [address] Jack Delaney DDS from Last 3 Months Social History Tobacco Use Types Packs/Day Years Used Date Smoking Tobacco: Never Smokeless Tobacco: Never Tobacco Cessation:Counseling Given: Not Answered Alcohol Use Standard Drinks/Week Comments Defer 0 (1 standard drink = 0.6 oz pur e alcohol) Depression Answer Date Recorded Patient Health Questionnaire-9 Score 10 02/10/2023 Housing Stability Answer Date Recorded What is your housing situation today? I have gabe mclaughlin 05/16/[address] you li ve. Do you have problems with any of the following? None of the above 05/16/2023 Food Insecurity Answer Date Recorded Within the past 12 months, y ou worried that your food would run out before you got money to buy more: Never True 05/16/2023 Within the past 12 months,th e food you bought just didn't last and you didn't have enough money to get more: Never True Transportation Answer Date Recorded In the past 12 months, has l ack of transportation kept you from medical appts, meetings, work or from getting things needed for daily living? No 05/16/2023 Utilities Answer Date Recorded In the past 12 months, has t he electric, gas, oil or water company threatened to shut off services in your home? No 05/16/2023 Depression Answer Date Recorded Patient Health Questionnaire-2 Score 2 02/10/2023 Comments Unknown Sex and Gender Information Value Date Recorded Sex Assigned at Female 05/17/2022 10:16 AM EDT Legal Sex Female 10:16 AM EDT Gender Identity Female 05/17/2022 10:16 AM EDT Sexual Orientation Straight 05/17/2022 10 :16 AM EDT Last Filed Vital Signs Vital Sign Reading Time Taken Comments Blood Pressure 128/74 09/11/2024 10:00 AM EST Pulse 78 02/10/2023 2:51 PM EDT Temperature 36.7 ??C (98 ??F) 02/10/2023 2:51 PM EDT Respiratory Rate 18 02/10/2023 2:51 PM EDT Oxygen Saturation 99% 02/10/2023 2:51 PM EDT Inhaled Oxygen Concentration - - Weight 68.1 kg (150 lb 3.2 oz) 02/10/2023 2:51 P M EDT Height 154.9 cm (5' 1 ) 02/10/2023 2:51 PM EDT Body Mass Index 28.38 02/10/2023 2:51 PM EDT Plan of Treatment Upcoming Encounters Date Type Department Care Team (Late st Contact Info) Description 10/10/2024 10:00 AM EDT Office Visit [facility] [address] [place] [address] Jack Delaney, DDS [address] [place] [address] Health Maintenance Due Date Last Done Comments Alcohol/Substance Use Screening 1993 Family Planning (PISQ) 02/04/1996 Hepatitis B Vaccines (1 of 3 - 19+ 3-dose series) 02/04/2000 02/15/2008, 05/02/2007, 03/31/2007 Pap Smear 2002 Depression Monitoring (PHQ-9) 08/13/2023 02/10/2023, 02/10/2023 Dental Oral Exam 12/31/2023 06/30/2023, , 12/28/2021, Additional history exists Dental Prophylaxis 12/31/2023 06/30/2023, 0 12/28/2021, 11/13/2020, Additional history exists Depression Screening 02/11/2024 02/10/2023, 02/11/20 23 SDOH Screening 02/11/2024 02/10/2023 COVID-19 Vaccine ( - season) 2024 06/29/2021, 10/29/2020 Dental X-Ray: Bitewings 07/01/2024 06/30/20, 12/28/2021, 11/13/2020, Additional history exists DTaP/Tdap/Td Vaccines (2 - Td or Tdap) 09/25/2024 09/25/2014, 02/04/2006 Tobacco Screening 09/11/2025 09/11/2024 Mammogram 12/22/2025 12/23/2023, 05/18, 11/20/2018, Additional history exists Dental X-Ray: Full Mouth 07/01/2026 06/30/2023, 03/2019 Cervical Cancer Screening 07/09/2026 HPV/Cotest 07/09/2026 07/09/2021, 07/09/2021 Lipid Panel 04/13/2027 04/13/2022 Zoster Vaccines (1 of 2) 2031 RSV Patients and Patients Aged 60 years or older (1 - 1-dose 75+ series) 02/04/2056 HIV Screening Completed 04/13/2022 Hepatitis C Screening Completed 04/13/2022 Influenza Vaccine Completed 06/06/2024, , 06/10/2021, Additional history exists HIB Vaccines Aged Out No longer eligi ble based on patient's age to complete this topic HPV Vaccines Aged Out No longer eligi ble based on patient's age to complete this topic Hepatitis A Vaccines Aged Out No long er eligible based on patient's age to complete this topic IPV Vaccines Aged Out No longer eligi ble based on patient's age to complete this topic Meningococcal Vaccine Aged Out No adamaris shayna eligible based on patient's age to complete this topic Pneumococcal Vaccine: Pediatrics (0 to 5 Years) and At-Risk Patients (6 to 49) Years) Aged Out No longer eligible based on patient's age to complete this topic RSV under 20 months Aged Out No longe r eligible based on patient's age to complete this topic Rotavirus Vaccines Aged Out No longer eligible based on patient's age to complete this topic Procedures Procedure Name Priority Date/Time Associated Diagnosis Comments BITE REGISTRATION Routine 09/11/2024 10: 00 AM EST DENTURE IMPRESSION Routine 08/14/2024 10 :00 AM EST BI MAMMOGRAM SCREENING TOMOSYNTHESIS BILATERAL Routine 12/23/2023 9:11 AM EDT PROPHYLAXIS - ADULT Routine 06/30/2023 2 :00 PM EST INTRAORAL - COMPLETE SERIES OF RADIOGRAPHIC IMAGES Routine 06/30/2023 2:00 PM EST PERIODIC ORAL EVALUATION - ESTABLISHED PATIENT Routine 06/30/2023 2:00 PM EST ZZZ HISTORICAL HEPATITIS C AB W/REFL TO HCV RNA, QN, PCR Routine 04/13/2022 1:18 PM EDT HIV 1/2 ANTIGEN/ANTIBODY, FOURTH GENERATION W/RFL Routine 04/13/2022 1:18 PM EDT LIPID PANEL, STANDARD Routine 04/13/2022 1:18 PM EDT ZZZ HISTORICAL HPV E6/E7 RFLX JESSICA 16 18/45 Routine 07/09/2021 9:52 AM EST from Last 3 Months or Most Recently Relevant to Health Maintenance Results * BI Mammogram Screening Tomosynthesis Bilateral (12/23/2023 9:11 AM EDT) Anatomical Region Laterality Modality Breast Bilateral Mammography 12/23/2023 9:11 AM EDT Narrative 01/09/2024 9:32 AM EDT ? [facility] ? [address] [facility] ?[place] [id number] ? Mammography Report ? Signed ? Patient: Fara Cox ?MR#: M ?? [id number] ? : 1980 ?Acct:[id number] ? Age/Sex: 43 / F ?ADM Date: 06/07/24 ? Loc: HO.MAMMO ? Attending Ethan Valerio FARM IMPLEMENT ENGINE MECHANIC ? Ordering Physician: Liliana Valerio FARM IMPLEMENT ENGINE MECHANIC ?Results: 2B ?? enign Findings ? Date of Service: 12/23/23 ?Follow Up: 1 Year From Orig ?? inal Mammogram ? Procedure(s): MM tomosynthesis screening BI ?? Accession Number(s): [id number] ? cc: TeodoroLiliana FARM IMPLEMENT ENGINE MECHANIC ? EXAMINATION: ?? MM SCREENING DIGITAL BREAST TOMOSYNTHESIS, BILATERAL ? CLINICAL INFORMATION: ? Screening. Asymptomatic. ? COMPARISON: ?? Mammography: This study is compared with prior exams dating back to ?? 2017. ? TECHNIQUE: ?? Digital breast tomosynthesis is performed in both the craniocaudal and ?? mediolateral oblique views along with computer-aided detection (CAD). ?? Synthesized 2D images are generated from the tomosynthesis. ? FINDINGS: ?? There are scattered areas of fibroglandular density (ACR BI-RADS breast ?? composition Category b). ? There are no significant masses, abnormal calcifications, or other ?? abnormalities. ? There is a biopsy tissue marker in the upper outer quadrant of the ?? right breast. ? MM/MM tomosynthesis screening BI ?? IMPRESSION: ?? No mammographic evidence of malignancy. ? ASSESSMENT: ? BI-RADS BI-RADS 2 - Benign Findings ? RECOMMENDATION: ?? Routine annual mammography screening. ? 1 year F/U ? This examination should not preclude the clinical evaluation of a ?? suspicious palpable abnormality. ? This patient's information was entered into a reminder system with a ?? target due date for their next mammogram. BI-RADS 2 ? Dictated By: ?Marychuy Brown MD ? Signed By: ?<Electronically signed by Marychuy Brown MD in OV> ? 01/09/24 0928 ? DD/ 09 ? TD/TT: ? Vp Product: ? Procedure Note Donaricter, [facility] - [facility] [address] [place] [address] Mammography Report Signed Patient: Fara Cox MMR#: M [id number] : 1980Acct:[id number] Age/Sex: 43 / FADM Date: 12/23/23 Loc: HO.MAMMO Attending Dr: Liliana Valerio FARM IMPLEMENT ENGINE MECHANIC Ordering Physician: Liliana Valerio FNPResults: 2B enign Findings Date of Service: 12/23/23Follow Up: 1 Year From Orig inal Mammogram Procedure(s): MM tomosynthesis screening BI Accession Number(s): [id number] cc: Liliana Valerio FARM IMPLEMENT ENGINE MECHANIC EXAMINATION: MM SCREENING DIGITAL BREAST TOMOSYNTHESIS, BILATERAL CLINICAL INFORMATION: Screening. Asymptomatic. COMPARISON: Mammography: This study is compared with prior exams dating back to 2018. TECHNIQUE: Digital breast tomosynthesis is performed in both the craniocaudal and mediolateral oblique views along with computer-aided detection (CAD). Synthesized 2D images are generated from the tomosynthesis. FINDINGS: There are scattered areas of fibroglandular density (ACR BI-RADS breast composition Category b). There are no significant masses, abnormal calcifications, or other abnormalities. There is a biopsy tissue marker in the upper outer quadrant of the right breast. MM/MM tomosynthesis screening BI IMPRESSION: No mammographic evidence of malignancy. ASSESSMENT: BI-RADS BI-RADS 2 - Benign Findings RECOMMENDATION: Routine annual mammography screening. 1 year F/U This examination should not preclude the clinical evaluation of a suspicious palpable abnormality. This patient's information was entered into a reminder system with a target due date for their next mammogram. BI-RADS 2 Dictated By: Marychuy Brown MD Signed By: <Electronically signed by Marychuy Brown MD in OV> 01/09/24927 DD/ 0911 TD/TT: Vp Product: us Liliana Valerio FARM IMPLEMENT ENGINE MECHANIC IMG BI PROCEDURES Final Re sult * HEPATITIS C AB W/REFL TO HCV RNA, QN, PCR (04/13/2022 1:18 PM EDT) HEPATITIS C ANTIBODY NON-REACT HARJINDER NON-REACT HARJINDER [facility] INDEX 0.09 <1.00 [facility] Comment: ?? HCV antibody was non-reactive. There is no laboratory ?? evidence of HCV infection. ?? In most cases, no further action is required. However, if recent HCV exposure is suspected, a test for HCV RNA (test code 91382) is suggested. ?? For additional information please refer to http://redBus.in.Who What Wear/faq/FPU55x3 (This link is being provided for informational/ educational purposes only.) ?? 04/13/2022 1:18 PM EDT Liliana Valerio FARM IMPLEMENT ENGINE MECHANIC HISTORICAL/NON ORDERABLE L ABS Final Result [facility] [address] * HIV 1/2 ANTIGEN/ANTIBODY,FOURTH GENERATION W/RFL (04/13/2022 1:18 PM EDT) HIV-1/2 ANTIGEN AND ANTIBODIES, 4TH GENERATION W/ REFLEX NON-REACT HARJINDER NON-REACT HARJINDER [facility] Comment: HIV-1 antigen and HIV-1/HIV-2 antibodies were not detected. There is no laboratory evidence of HIV infection. ?? PLEASE NOTE: This information has been disclosed to you from records whose confidentiality may be protected by state law. ??If your state requires such protection, then the state law prohibits you from making any further disclosure of the information without the specific written consent of the person to whom it pertains, or as otherwise permitted by law. A general authorization for the release of medical or other information is NOT sufficient for this purpose. ? For additional information please refer to http://redBus.in.Who What Wear/faq/PJH131 (This link is being provided for informational/ educational purposes only.) ? The performance of this assay has not been clinically validated in patients less than 2 years old. ?? 04/13/2022 1:18 PM EDT Liliana Castro [facility] LAB BLOOD ORDERABLES Final Result Performing Organization Address [facility] de Phone Number [facility] [address] [place] [address], [place] * LIPID PANEL, STANDARD (04/13/2022 1:18 PM EDT) Chol/HDLC Ratio 2.2 <5.0 (calc) [facility] Cholesterol, Total 184 <200 mg/dL [facility] HDL Cholesterol 84 > OR = 50 mg/dL [facility] LDL Cholesterol 85 mg/dL (calc) [facility] Comment: Reference range: <100 ?? Desirable range <100 mg/dL for primary prevention; ?? <70 mg/dL for patients with CHD or diabetic patients ?? with > or = 2 CHD risk factors. ?? LDL-C is now calculated using the Lobo-Quintero ?? calculation, which is a validated novel method providing ?? better accuracy than the Friedewald equation in the ?? estimation of LDL-C. ?? Lobo PRESLEY et al. VEE. 2013;310(19): 6261-1177 ?? (http://education.Coderwall/faq/ZOD900) Non-HDL Cholesterol 100 <130 mg/dL (calc) [facility] Comment: For patients with diabetes plus 1 major ASCVD risk ?? factor, treating to a non-HDL-C goal of <100 mg/dL ?? (LDL-C of <70 mg/dL) is considered a therapeutic ?? option. Triglycerides 64 <150 mg/dL [facility] 04/13/2022 1:18 PM EDT [facility] LAB BLOOD ORDERABLES Final Result Performing Organization Address [facility]/ZIP Co de Phone Number [facility] [address] [place] [address], [place] * HPV E6/E7 RFLX JESSICA 16 18/45 (07/09/2021 9:52 AM EST) HPV mRNA E6/E7 rflx Not Detected Not Detected [facility] Comment: Methodology: Film Writer-Mediated Amplification This assay detects E6/E7 viral messenger RNA (mRNA) from 14 high-risk HPV types (16,18,31,33,35,39,45,51,52,56,58,59,66,68). The analytical performance characteristics of this assay have been determined by [employer]. The modifications have not been cleared or approved by the FDA. This assay has been validated pursuant to the CLIA regulations and is used for clinical purposes. For additional information, please refer to http://education.Who What Wear/faq/RVW083m5 (This link if provided for information/ educational purposes only.) THIS TEST WAS PERFORMED AT: [employer] [address] [place] [address],[address] [place], [place] ??[id number] ROYER MADDEN MD 07/09/2021 9:52 AM EST [facility] [place] HISTORICAL/NON ORDERABLE LABS Fi nal Result [facility] [address] from Last 3 Months or Most Recently Relevant to Health Maintenance Insurance [facility] C[facility] MEDICAID STAND ADULT Care Teams Shooter'S Helper Relationship Specialty Start Date End Date Rocio Haque MD [address] [place] [address] [place] [id number] PCP - General Internal Medicine 02/27/23
--- OUTSIDE RECORDS SUMMARY | 2024-09-26 12:28 | XMS_ITS | Encounter Summary ---
Author Organization [employer] [facility] Address [address] [place] [address] [place] [address] Care Team Providers Care Lifeguard Name Role Phone Liliana Valerio Primary Care Provider +1- [phone] Rocio Haque MD Primary Care Pro vider Encounter Details Date Type Department Care Team (Latest Contact Info) Description 01/10/2019 Abstract [facility] CONVERSIONS Dental, Provider, DDS Social History Tobacco Use Types Packs/Day Years Used Date Smoking Tobacco: Never Assessed Comments Unknown Sex and Gender Information Value Date Recorded Sex Assigned at Female 05/17/2022 10:16 AM EDT Legal Sex Female 10:16 AM EDT Gender Identity Female 05/17/2022 10:16 AM EDT Sexual Orientation Straight 05/17/2022 10 :16 AM EDT documented as of this encounter Plan of Treatment Upcoming Encounters Date Type Department Care Team ( st Contact Info) Description 10/10/2024 10:00 AM EDT Office Visit [facility] ADULT DENTAL [address] [place] [address] Jack Delaney DDS [address] [place] [address] documented as of this encounter Visit Diagnoses Not on filedocumented in this encounter Care Teams Lifeguard Relationship Specialty Start Date End Date Liliana Valerio FNP PCP - General Family Medicine 01/05/22 02/26/23 Rocio Haque MD [address] [place] [address] PCP - General Internal Medicine 02/27/23 documented as of this encounter
--- OUTSIDE RECORDS SUMMARY | 2024-09-26 12:28 | XMS_ITS | Encounter Summary ---
Author Organization [facility] Address [address] [place] [address] [place] [address] Care Team Providers Care Foil Spinner Name Role Phone Liliana Valerio Primary Care Provider +1- [phone] Rocio Haque MD Primary Care Pro vider Encounter Details Date Type Department Care Team (Latest Contact Info) Description 11/13/2020 Abstract [facility] CONVERSIONS Dental, Provider, DDS Social History [...] Description 10/10/2024 10:00 AM EDT Office Visit [facility] ADULT DENTAL [address] [place] [address] Jack Delaney DDS [address] [place] [address] documented as of this encounter Visit Diagnoses Not on filedocumented in this encounter Care Teams Foil Spinner Relationship Specialty Start Date End Date Liliana Valerio FNP PCP - General Family Medicine 01/05/22 02/26/23 Rocio Haque MD [address] [place] [address] PCP - General Internal Medicine 02/27/23 documented as of this encounter
--- OUTSIDE RECORDS SUMMARY | 2024-09-26 12:28 | XMS_ITS | Encounter Summary ---
Author Organization [email or web address] [facility] Address [address] [place] [address] [place] [address] Care Team Providers Care Auto Wrecker Name Role Phone Liliana Valerio Primary Care Provider +1- [phone] Rocio Haque MD Primary Care Pro vider Encounter Details Date Type Department Care Team (Latest Contact Info) Description 12/28/2021 Abstract [facility] CONVERSIONS Dental, Provider, DDS Social History Tobacco [...] Description 10/10/2024 10:00 AM EDT Office Visit [facility] ADULT [facility] [address] [place] [address] Jack Delaney DDS [address] [place] [address] documented as of this encounter Visit Diagnoses Not on filedocumented in this encounter Care Teams Auto Wrecker Relationship Specialty Start Date End Date Liliana Valerio FNP PCP - General Family Medicine 01/05/22 02/26/23 Rocio Haque MD [address] [place] [address] PCP - General Internal Medicine 02/27/23 documented as of this encounter
--- OUTSIDE RECORDS SUMMARY | 2024-09-26 12:29 | XMS_ITS | Encounter Summary ---
Author Organization [employer] Address [address] [place] [address] Care Team Providers Care Executive Director Of Marketing Name Role Phone Rocio Haque MD Primary Care Pro vider Reason for Visit * Reason Comments Dental Pain Encounter Details Date Type Department Care Team ([facility] st Contact Info) Description 09/11/2024 10:00 AM EST Office Visit [facility] ADULT [facility] [address], [place] [phone] Jack Delaney, JHONNY [address], [place] [phone] Partial edentulism, unspecified edentulism class (Primary Dx) Social History Tobacco Use Types Packs/Day Years Used Date Smoking Tobacco: Never Smokeless Tobacco: Never Alcohol Use Standard Drinks/Week Comments Defer 0 [...] AM EDT documented as of this encounter Last Filed Vital Signs Vital Sign Reading Time Taken Comments Blood Pressure 128/74 09/11/2024 10:00 AM EST Pulse - - Temperature - - Respiratory Rate - - Oxygen Saturation - - Inhaled Oxygen Concentration - - Weight - - Height - - Body Mass Index - - documented in this encounter Progress Notes * Jack Delaney DDS - 09/11/2024 10:00 AM EST Patient ID: Fara Real is a 44 y.o. female. Time Out: Timeout Date: 09/11/24, Timeout Time: 1001 (bite reg) Location: [facility] Tooth: Maxilla ONLY Procedure: Dentures Verified the above with patient, lead assistant manager, and provider. Confirmed via patient's chart, intraorally and by radiographs. Miller Head Wet Process: not applicable Chief Complaint Patient presents with Dental Pain Medical Hx: Vitals: Blood pressure 128/74. Medications, Med Hx reviewed with patient and updated in chart. Consent Obtained: The risks, benefits, indications, potential complications, and alternatives were explained to the patient and informed consent was obtained with good understanding. Treatment Provided: Dental procedures in this visit [id number] - BITE REGISTRATION (Completed) Service provider: Jack Delaney DDS Billing provider: Jack Delaney DDS Occlusal Wax rims tried in & records taken: -Vertical Dimension -Midline -Interpupillary line -Occlusal Relationship -Smile Line -Canine [place] Bite Registration taken with: Wax Tooth Selection: Coolio Mould: Shade: A 2 Size: Sent to Lab for tooth set up in wax Lab used: [facility] Due Date: 3-6-25 Patient discharged alert, oriented, and in stable condition. [place]: [place] Hand: Lisandra Douglas Dentist: Jack Delaney DDS documented in this encounter Plan of Treatment Upcoming Encounters Date Type Department Care Team (Late st Contact Info) Description 10/10/2024 10:00 AM EDT Office Visit [facility] ADULT [facility] [address], [place] [phone] Jack Delaney DDS [address] [place] [address] documented as of this encounter Procedures Procedure Name Priority Date/Time Associated Diagnosis Comments BITE REGISTRATION Routine 09/11/2024 10:00 AM EST documented in this encounter Visit Diagnoses Diagnosis Partial edentulism, unspecified edentulism class- Primary documented in this encounter Additional Health Concerns Assessment Noted Time PHQ-9 Depression Total Score: 10 02/10/ 023 4:32 PM EDT documented as of this encounter Care Teams Executive Director Of Marketing Relationship Specialty Start Date End Date Rocio Haque MD [address] [place] [address] PCP - General Internal Medicine 02/27/23 documented as of this encounter
== END 2024-09-26 12:55 | disposition home or self-care (01) ==
LOC: HO.HWSM 10:48
PROVIDERS: PCP Registered Nurse; Visit Provider Advanced Practice Midwife
DX: Z01.419 Encounter for gynecological examination (general) (routine) without abnormal findings (principal); N92.5 Other specified irregular menstruation; N95.1 Menopausal and female climacteric states; E66.9 Obesity, unspecified
CPT/HCPCS: 99396; 99459

== ENCOUNTER → 2024-09-26 10:45 | Outpatient (BNVA) | payer MEDICAID, SELFPAY | PROVIDERS: PCP Registered Nurse; Visit Provider Advanced Practice Midwife | DX: Z12.4 Encounter for screening for malignant neoplasm of cervix (principal); Z01.419 Encounter for gynecological examination (general) (routine) without abnormal findings; Z12.39 Encounter for other screening for malignant neoplasm of breast; N92.5 Other specified irregular menstruation; E66.9 Obesity, unspecified; N95.1 Menopausal and female climacteric states | CPT/HCPCS: 99396; 99459 ==

== ENCOUNTER 2024-12-31 12:31 | Outpatient (REF) | payer MEDICAID, SELFPAY | END 2024-12-31 12:32 | disposition home or self-care (01) | LOC: HO.MAMMO 12:31 | PROVIDERS: Visit Provider Registered Nurse | DX: Z12.31 Encounter for screening mammogram for malignant neoplasm of breast (principal) | CPT/HCPCS: 77063; 77067 ==

== ENCOUNTER → 2024-12-31 14:00 | Outpatient (BNV) | payer MEDICAID, SELFPAY | PROVIDERS: Visit Provider Internal Medicine | DX: Z12.31 Encounter for screening mammogram for malignant neoplasm of breast (principal) | CPT/HCPCS: 77063; 77067 ==

== ENCOUNTER 2025-05-31 12:42 | Outpatient (AMB) | payer MEDICAID, SELFPAY ==
--- NOTE | 2025-05-31 12:45 | A.OFFVIS_ITS ---
Vital Signs 05/31/25 12:46 Height 5 ft 1 in Weight 170 lb BMI 32.1 BP 138/80 Blood Pressure Location Rt brachial Position Sitting Pulse 76 Pulse Source Pulse Oximeter Pulse Oximetry (%) 99 Oxygen Delivery Method Room Air Intake Visit Reasons: Follow up GERD medication Intake Note: Est pt for mgmt of GERD. CC; Pt denies any GI sx or concerns at this time. Confirms that she is taking her current Rx w/o any complication. Ground Host/Hostess Required: No Accompanied by: Self / Same As Patient Allergies No Known Allergies Allergy (Verified 09/26/24 10:56) HPI HPI Follow up GERD medication: Details: Assessment & Plan (1) GERD (gastroesophageal reflux disease): Comment: UGI - mild reflux only Code(s): K21.9 - Gastro-esophageal reflux disease without esophagitis Category: Medical (2) Chronic idiopathic constipation: Code(s): K59.04 - Chronic idiopathic constipation Category: Medical Plan Sinhala #declines She continues to do well. She continues on her pantoprazole with good control of her GERD her dicyclomine for her cramping and her simethicone for bloating.? She is on senna for her constipation.? She remains satisfied with her GI regimen. ROV 6 mos. Medications: Refilled pantoprazole 40 mg PO DAILY 90 tabs 2RF K21.9 - Gastro-esophageal reflux disease without esophagitis, R10.10 - Upper abdominal pain, unspecified sennosides (senna) 17.2 mg (2 x 8.6 mg) PO BEDTIME PRN 60 caps 6RF constipation K59.04 - Chronic idiopathic constipation simethicone after meals 180 mg PO QID 120 caps 6RF 30 days dicyclomine 20 mg (2 x 10 mg) PO QID PRN 240 caps 6RF for cramps K58.9 - Irritable bowel syndrome without diarrhea TODAY'S VISIT KYRGYZ # DECLINES (Araceli) [facility] Medical History (Updated 05/31/25 @ 14:46 by EPIFANIO Kramer) Potential exposure to STD Cervical cancer screening Breast cancer screening Well woman exam with routine gynecological exam Morbid obesity Myofascial pain Coccydynia Depression Steatosis, liver BMI 36.0-36.9,adult COVID-19 vaccine series completed Preprocedural examination Nausea BMI 37.0-37.9, adult PTSD (post-traumatic stress disorder) Obesity (BMI 30-39.9) Patellofemoral arthralgia of both knees BMI 38.0-38.9,adult BMI 39.0-39.9,adult Obesity BMI 40.0-44.9, adult Vitamin D deficiency Bipolar 1 disorder Anxiety with depression Upper abdominal pain Chronic idiopathic constipation GERD (gastroesophageal reflux disease) IBS (irritable bowel syndrome) Surgical History S/P laparoscopic sleeve gastrectomy History of dilation and curettage S/P laparoscopic cholecystectomy Hx of section History of esophagogastroduodenoscopy (EGD) Family History Mother No problems noted. Father No problems noted. Brother No problems noted. Sister No problems noted. Daughter No problems noted. 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 Female Reproductive History Menstrual Age of Menarche: 12 Review of Systems Const Reports excessive sweating, Denies fatigue, Denies fever(s), Denies night sweats, Denies poor appetite and Denies weight loss ENT Reports Normal hearing present, Denies dental pain, Denies dysphagia, Denies hearing loss, Denies mouth pain, Denies odynophagia, Denies throat swelling, Denies tongue swelling and Reports other (Dentition adequate) Card Reports no additional complaints Resp Reports no additional complaints GI Details: Denies abdominal pain, Denies melena, Reports bloating, Denies hematochezia, Denies constipation, Denies GI cramping, Denies dysphagia, Denies excessive flatus, Denies early satiety, Reports heartburn, Denies diarrhea, Denies nausea, Denies odynophagia, Denies vomiting and Denies hematemesis Musc Reports myalgias and Reports arthralgias Skin/Breast Denies pruritus, Denies lesions, Denies rash and Denies jaundice Neuro Reports Normal hearing present and Denies Abnormal speech present Psych Reports difficulty concentrating and Reports irritability Endo Reports excessive sweating, Denies fatigue and Reports flushing Aller/Immun Denies throat swelling and Denies tongue swelling Physical Exam Vital Signs: Last Vital Signs Pulse 76 05/31/25 12:46 BP 138/80 05/31/25 12:46 Pulse Ox 99 05/31/25 12:46 Oxygen Delivery Method Room Air 05/31/25 12:46 BMI result Body Mass Index 32.1 Const General: cooperative, no acute distress, well developed and well groomed Nutritional Appearance: well nourished and obese Orientation/consciousness: oriented to person, oriented to place and oriented to time Limitations: No language barrier HEENT Head: Yes normocephalic and Yes atraumatic Eyes General: appearance normal, both eyes and all related structures Pupils: Equal, round and reactive pupils present Neck Neck: Yes normal visual inspection and Yes no lymphadenopathy Thyroid: Thyroid normal Resp Effort & Inspection: normal respiratory effort and able to speak in complete sen tences Auscultation: clear to auscultation bilaterally Cardio Rate: regular rate Rhythm: regular rhythm Heart sounds: Normal, physiologic split S2 sound present Peripheral pulses: radial pulses present and posterior tibial pulses present GI Inspection: No distended, No Abdominal panniculus present and Yes obesity Palpation (GI): Soft to palpation, nontender, no guarding, not rigid and Hepatosplenomegaly present Percussion: Yes normal to percussion Auscultation: normal bowel sounds Rectal Exam - Female: deferred Skin General skin exam: no rashes or lesions noted, turgor normal, skin not dry, no jaundice, No spider nevi and no striae Rashes: no rashes Nails: normal Neuro General: oriented to person, oriented to place and oriented to time Cranial nerves: Yes Equal, round and reactive pupils present and Yes Normal hearing present Speech: No Abnormal speech present Extrem General: Yes normal to inspection, No clubbing, No cyanosis and No edema Psych Appearance: grossly normal and well kempt Mental Status: mental status grossly normal Speech and movement: Normal speech and movement present Affect: normal affect Attitude: cooperative Thought process: Normal thought process present and not confabulating Thought content: Normal thought content present Insight: Fair insight present (Psych) Judgement: Fair judgement present (Psych) Assessment & Plan Assessment & Plan (1) GERD (gastroesophageal reflux disease): Comment: UGI - mild reflux only Code(s): K21.9 - Gastro-esophageal reflux disease without esophagitis Category: Medical (2) Chronic idiopathic constipation: Code(s): K59.04 - Chronic idiopathic constipation Category: Medical (3) Perimenopausal symptoms: Code(s): N95.1 - Menopausal and female climacteric states Category: Medical (4) Myofascial pain: Code(s): M79.18 - Myalgia, other site Category: Medical Plan KYRGYZ # DECLINES ([place]ERT[place]) SHE IS ON PANTOPRAZOLE, DICYCLOMINE, SIMETHICONE, AND SENNA. Subjective Patient presents for medication review and refills for gastrointestinal symptoms. She reports continued daily use of pantoprazole with good effect. She uses simethicone (?the gas one?) and requests more; uses senna only occasionally. She does not use dicyclomine (Bentyl) and agrees to discontinue it. No new gastrointestinal concerns. Patient reports perimenopausal symptoms including hot flashes, mood fluctuations, diffuse body aches, and a nonspecific ?weird? sensation in her head. She is seeking guidance for symptom management. Objective Assessment & Plan Gas/bloating: Ongoing intermittent gas symptoms responsive to simethicone. - Refill simethicone as requested. - Use as needed for gas relief. Medication management: Ongoing acid suppression helpful; patient not using antispasmodic. - Refill pantoprazole. - Refill senna for occasional use. - Discontinue dicyclomine (Bentyl) from active medication list per patient preference. Perimenopausal symptoms: Hot flashes, mood lability, and generalized aches consistent with perimenopause. Provided counseling on the natural course and symptomatic options. - Discussed trial of [id number] progesterone cream applied nightly to the abdomen; may obtain online. Start with nightly use; may adjust based on response. - Discussed that prescription hormone therapy (e.g., patch) is an option but not initiated today. - Reassurance provided that symptoms typically improve over time. Preventive care: colorectal cancer screening: Age-appropriate planning. - Plan to initiate screening colonoscopy at age 46; revisit at next visit around birthday next year. Follow-up: Schedule routine follow-up in 6 months, or sooner as needed for symptom changes or concerns. Medications: Refilled sennosides (senna) 17.2 mg (2 x 8.6 mg) PO BEDTIME PRN 60 caps 6RF constipation K59.04 - Chronic idiopathic constipation simethicone after meals 180 mg PO QID 120 caps 6RF 30 days pantoprazole 40 mg PO DAILY 90 tabs 2RF K21.9 - Gastro-esophageal reflux disease without esophagitis, R10.10 - Upper abdominal pain, unspecified Discontinued dicyclomine Discontinued Reason: Doctor's Order 20 mg (2 x 10 mg) PO QID PRN 240 caps 6RF for cramps K58.9 - Irritable bowel syndrome, unspecified Coding Level of Care Code Est Pt Level 3 (71889) Diagnoses GERD (gastroesophageal reflux disease) K21.9 Chronic idiopathic constipation K59.04 Perimenopausal symptoms N95.1 Myofascial pain M79.18
[2025-05-31 12:46] VITALS: BP 138/80; PULSE 76; O2SAT 99; BMI 32.1
== END 2025-05-31 13:07 | disposition home or self-care (01) ==
LOC: HO.HGI 12:43
PROVIDERS: PCP Internal Medicine; Visit Provider Nurse Practitioner
DX: K21.9 Gastro-esophageal reflux disease without esophagitis (principal); K59.04 Chronic idiopathic constipation; N95.1 Menopausal and female climacteric states; M79.18 Myalgia, other site
CPT/HCPCS: 99213

== ENCOUNTER → 2025-05-31 12:42 | Outpatient (BNVA) | payer MEDICAID, SELFPAY | PROVIDERS: PCP Internal Medicine; Visit Provider Nurse Practitioner | DX: K21.9 Gastro-esophageal reflux disease without esophagitis (principal); K59.04 Chronic idiopathic constipation; N95.1 Menopausal and female climacteric states; M79.18 Myalgia, other site | CPT/HCPCS: 99212 ==